=== PATIENT | female | born 1990 | race Caucasian/White ===

== ENCOUNTER 2018-07-12 21:17 | Emergency (ER) | payer OTHER, SELFPAY ==
[2018-07-12 21:18] VITALS: BP 166/106; PULSE 94; RESP 20; TEMP 36.5; O2SAT 99; BMI 42.9
--- NOTE | 2018-07-12 21:49 | EKG12_ITS ---
Test Reason : DIZZINESS Blood Pressure : / mmHG Vent. Rate : 097 BPM Atrial Rate : 097 BPM P-R Int : 156 ms QRS Dur : 074 ms QT Int : 366 ms P-R-T Axes : 036 025 044 degrees QTc Int : 464 ms Normal sinus rhythm Normal ECG Confirmed by CRISTINA DIMAS, BERNA ([id number]), newspaper or periodical editor EARLENE PFEIFFER ([id number]) on 07/14/2018 10:08:21 AM Referred By: VICENTE Confirmed By:BERNA EVANS MD
--- NOTE | 2018-07-12 21:53 | ED.RN ---
NO OLD EKGS IN MUSE
[2018-07-12 22:23] LABS: Mucous, Urine 0 SEEN /hpf (<or=2+); Red Blood Cells-Urine 0 SEEN /hpf (0-5)
[2018-07-12 22:37] VITALS: BP 125/83; PULSE 93; RESP 22; O2SAT 97
[2018-07-12 22:47] LABS: Color, Urine Yellow (Yellow); Glucose, Dipstick Normal (Normal); Ketone-Dipstick Negative (Negative); Leukocyte Esterase-Dipstick 100 /ul (Negative); Nitrite-Dipstick Negative (Negative); Occult Blood-Urine Negative /ul (Negative); Protein-Dipstick 15 mg/dl (Negative); Specific Gravity, Urine 1.025 (1.002-1.030); Urine Bilirubin Dipstick Negative (Negative); Urine Clarity Sl. Cloudy (Clear); Urine Urobilinogen 1 mg/dl (Normal)
[2018-07-12 22:48] LABS: Hematocrit 38.7 % (37-47); Hemoglobin 12.4 g/dl (12.0-15.0); Mean Corpuscular Hgb 25.9 pg (27.0-32.0); Mean Corpuscular Volume 80.8 fL (81-99); Mean Platelet Vol. 9.5 fl (6.2-12.0); Platelet Count 375 K/mm3 (150-450); RBC Distribution Width CV 14.7 % (11.6-14.6); Red Blood Count 4.79 M/mm3 (4.2-5.4); White Blood Count 10.1 K/mm3 (4.4-11.0)
[2018-07-12 22:50] LABS: Scan Indicated on CBC? Y/N NO
[2018-07-12 22:55] LABS: Bacteria RARE /hpf (None Seen); Squamous Epithelial Cells - UA 5-10 SEEN /hpf (5-10); White Blood Cells 5-10 SEEN /hpf (0-5)
[2018-07-12 23:01] LABS: Anion Gap 5 (5-15); BUN 7 mg/dL (7-18); BUN/Creat Ratio 11.4 RATIO (10-20); Calcium,Total 8.5 mg/dL (8.5-10.1); Chloride 107 mmol/L (98-107); Creatinine, Serum 0.62 mg/dL (0.55-1.02); EST Glomerular Filtration Rate 123 mL/min (>60); Est Glom Filt Rate - Afr Amer 149 mL/min (>60); Glucose 117 mg/dL (74-106); Potassium 3.6 mmol/L (3.5-5.1); Sodium Level 137 mmol/L (136-145)
--- NOTE | 2018-07-12 23:18 | ED.VIS.GEN ---
History of Present Illness Chief Complaint: Dizziness Detail of Chief Complaint: Left-sided chest pain and noncompliance with blood pressure medication Informant: Patient, Family Onset: Month(s) Context: Sudden Onset Timing: Intermittent Quality: Dizziness equals vertigo Location: Change in position Current Severity: Gone Maximum Severity: Severe Worsened by: Change in head position Relieved by: Lying down remaining still and closing her eyes Associated Symptoms: Nausea and diaphoresis with vertigo Narrative: Patient is a 27-year-old woman who has not taken her blood pressure medications for months. She resumed taking her medication several days ago. She presents with dizziness which she defines as a spinning sensation. She feels that she had multiple mixed drinks. She denied double vision. She denies trouble with speech or swallowing. She denies paresthesia, anesthesia or motor weakness. She did would have numbness of her left upper extremity and her toes right and left foot. There was no other associated symptoms. She denies headache. She denies change in vision or blurred vision. She denies radiation of the chest pain nor is or any associated symptoms. Prior similar symptoms: No Recent Illness/Hospitalization: No Past Medical History - Allergies and Home Meds Allergies/Adverse Reactions: Allergies No Known Allergies Allergy (Verified 07/12/18 21:19) Primary Care Physician: Micaela Morel MD [Primary Care Provider] - Past Medical History: - - Hypertension Surgical History: noncontributory Lives: Spouse/ Significant Other Smoking Status: Current every day smoker Alcohol: Occasional Drugs: None Review of Systems General: Denies: Chills, Fever, Malaise, Sweats, Weight loss Eyes: Denies: Visual changes - left, Visual changes - bilaterally, Blurred Vision - bilaterally, Diplopia ENT: Denies: Bilateral ear pain, Rhinorrhea, Sore throat Cardiovascular: Denies: Chest pain, Palpitations, Heart racing Respiratory: Denies: Dyspnea, Cough, Dyspnea on exertion Gastrointestinal: Reports: Nausea, Vomiting. Denies: Abdominal pain, Diarrhea, Melena, Hematochezia Genitourinary: Denies: Dysuria, Hematuria, Frequency Musculoskeletal: Denies: Myalgias, Arthralgias, Neck pain, Back pain, Extremity Pain Skin: Denies: Rash, Wounds Neurological: Denies: Headache, Weakness, Parasthesia, Numbness Endocrine: Denies: Polyuria, Polydipsia Hematologic: Denies: Easy bruising, Easy bleeding Allergy: Denies: Uticaria Physical Exam Vital Signs/Narrative: Vital Signs Temp Pulse Resp BP Pulse Ox 07/12/18 22:37 93 22 H 125/83 H 97 07/12/18 21:18 97.7 F L 94 20 H 166/106 H 99 Inital Vital Signs reviewed: Yes General: Well nourished, Well developed, Obese, No Acute Distress Head: Normocephalic, Atraumatic Eyes: Perrl, EOMI. Negative for: Pale conjunctiva, Scleral icterus ENT: Moist mucous membranes, No rhinorrhea, TM's clear, Nasal congestion Neck: Supple, Nontender, No lymphadenopathy, No JVD, - - Trachea is midline there is no stridor. Cardiovascular: Regular rate, Regular rhythm, No murmurs, Normal S1, Normal S2 Respiratory: No distress, CTA bilaterally, Chest nontender Abdomen: Soft, Nontender, Nondistended, Normal bowel sounds, No masses Rectal: Deferred Back: Nontender Extremities: Nontender, No edema. Negative for: Calf Tenderness Skin: Normal color, No rash. Negative for: Cyanosis, Jaundice Neurological: Alert, Oriented x3, Cranial nerves II-XII grossly intact, Normal Strength, Normal Sensation, Normal DTR, Normal Gait, - - Livingston-Hallpike maneuver was negative. The eye askew test was negative. TheHINT exam was negative. Psychological: Normal affect, Normal Mood Diagnostic/Tx/Re-eval Troponin is normal. CBC and BMP are unremarkable. - Rhythm Strip Rhythm Strip: Sinus Rhythm Rate: 92 Ectopy: None - EKG Initial EKG Interpretation: Sinus Rhythm - Ventricular rate is 97. MD interval, QRS duration and QT interval normal. [place] is normal. EKG is normal. - Medical Decision Making Patient describing paroxysmal benign positional vertigo. Neuro exam is normal. Imaging is not indicated. Because of her complaint of left chest pain and noncompliance with blood pressure medication will obtain basic metabolic panel to assess renal function and UA to assess for proteinuria and hematuria. EKG was obtained to evaluate for ischemia as well as troponin. Patient was informed of her workup is unremarkable. There is no evidence of endorgan injury. EKG and troponin are normal. She was informed the cause of her left-sided chest pain is uncertain. She was encouraged to follow-up with her PCP and to take her blood pressure medication as prescribed. ED Disposition - Plan for ED Patient: Disposition: Home or Assisted Living Diagnosis: Left-sided chest pain, Hypertension, Benign paroxysmal positional vertigo Referrals: Micaela Morel MD [Primary Care Provider] - 3-5 Days
--- NOTE | 2018-07-12 23:28 | ED.DCSUM_ITS ---
- ER Visit Summary Date of Service: 07/12/18 Chief Complaint: [] History of Present Illness: The patient is a 27 F [] Physical Examination: [] Test Results: [] Emergency Department Course and Treatment: [] Treatment Plan: [] Disposition: [] Impression: [] This note was generated with [employer] dictation software. It may contain incorrect words, spelling, and punctuation that were not noted in review of the chart prior to signing ED Disposition - Plan for ED Patient: Disposition: Home or Assisted Living Diagnosis: Left-sided chest pain, Hypertension, Benign paroxysmal positional vertigo Instructions: ED BPV Vertigo, ED Chest Pain NonCardiac Referrals: Micaela Morel MD [Primary Care Provider] - 3-5 Days
[2018-07-12 23:35] VITALS: BP 153/107; PULSE 87; RESP 20; O2SAT 95
== END 2018-07-12 23:36 | disposition home or self-care (01) ==
PROVIDERS: Emergency Provider Emergency Medicine; Family Provider Family Medicine; PCP Family Medicine
DX: H81.10 Benign paroxysmal vertigo, unspecified ear (principal); R07.9 Chest pain, unspecified; I10 Essential (primary) hypertension; F17.200 Nicotine dependence, unspecified, uncomplicated; E66.9 Obesity, unspecified; Z91.14 Patient's other noncompliance with medication regimen; Z79.899 Other long term (current) drug therapy
CPT/HCPCS: 80048; 81001; 84484; 85027; 93005; 99284

== ENCOUNTER 2019-09-15 00:59 | Emergency (ER) | payer OTHER, SELFPAY ==
[2019-09-15 01:01] VITALS: BP 163/113; PULSE 123; RESP 16; TEMP 36.8; O2SAT 98; BMI 48.8
[2019-09-15 01:06] VITALS: BP 163/113; PULSE 123; RESP 16; TEMP 36.8; O2SAT 98
--- NOTE | 2019-09-15 01:16 | CT_ITS ---
STUDY: CT ABDOMEN AND PELVIS WITHOUT CONTRAST REASON FOR EXAM: Female, 28 years old. SEVERE LOWER ABD PAIN RIGHT SIDE SINCE 2129 RADIATES TO BACK AND UMBILICAL REGION WITH EMESIS RADIATION DOSAGE (If Supplied By Facility): CTDIvol = ( 23.84 ) mGy, DLP = ( 1197.12 ) mGycm TECHNIQUE: Transaxial 2.5 mm images were obtained from the dome of the diaphragm to the symphysis pubis without oral contrast, and without intravenous contrast. Sagittal and coronal images were reconstructed. This examination is limited for the evaluation of gastrointestinal, solid organs and vascular structures due to the lack of intravenous and oral contrast. There is obesity, the entirety of soft tissue is not imaged. Individualized dose optimization techniques were used for this CT. COMPARISON: None. FINDINGS: The visualized lung bases are unremarkable. The visualized portions of the heart are within normal limits. There is hepatomegaly with diffuse hepatic enlargement. Liver measures craniocaudal by 2.5 cm. Normal gallbladder and extrahepatic biliary system. Normal spleen. Normal pancreas. Normal bilateral adrenal glands. Normal right kidney. Normal left kidney. There is no obstructive uropathy, obstructive renal or ureteral calculi. Normal visualized stomach. Normal small intestine. Normal colon. The appendix is visualized and appears normal. Image 65-81 series 601 Normal abdominal aorta. Normal inferior vena cava. Normal retroperitoneum. Decompressed urinary bladder. Normal visualized uterus. Right ovary measures approximately 3.5 x 2.5 x 3.6 cm. The ovary measures approximately 4 x 3.5 x 3.5 cm. Obesity. Normal osseous structures. CT/Abdomen/Pelvis without Cont IMPRESSION: There is no appendicitis, colitis, ascites, hydronephrosis, abscess, collection, perforation or obstruction. Hepatomegaly. Normal appearance of adnexa/ovary and uterus on noncontrast imaging. Electronically Signed: Katie Barksdale MD at 2:40 EDT , Service support ,
--- NOTE | 2019-09-15 01:17 | ED.VIS.GEN ---
History of Present Illness Chief Complaint: Abd Pain Informant: Patient Narrative: Stated approximately 4 hours ago she had acute onset of right lower quadrant pain. She was resting comfortably and then it hit her all of a sudden. It waxes and wanes. Is a dull pain but then she gets intermittent sharp pains. She is never had this before. Current severity is mild. No blood in her urine. Denies . Last menstrual period was a couple weeks ago. Denies any vaginal symptoms. No home treatment. Worsened by touching it. Relieved by time. She denies any medical problems other than hypertension. No previous abdominal surgeries per patient. Stated it radiates into her back bilateral worse on the right Past Medical History - Allergies and Home Meds Allergies/Adverse Reactions: Allergies No Known Allergies Allergy (Verified 07/12/18 21:19) Primary Care Physician: Arin Branch,Out of [NON-STAFF] - Prior records reviewed: Yes Past Medical History: - - Hypertension Surgical History: noncontributory Smoking Status: Never smoker Alcohol: None Drugs: None Review of Systems General: Denies: Chills, Fever, Sweats Eyes: Denies: Visual changes - bilaterally, Diplopia ENT: Denies: Rhinorrhea, Sore throat Cardiovascular: Denies: Chest pain, Palpitations Respiratory: Denies: Dyspnea, Cough, Dyspnea on exertion Gastrointestinal: Reports: Abdominal pain. Denies: Nausea, Vomiting, Diarrhea, Melena, Hematochezia Genitourinary: Denies: Dysuria, Hematuria, Frequency Musculoskeletal: Reports: Back pain. Denies: Extremity Pain Skin: Denies: Rash, Wounds Neurological: Denies: Headache, Weakness, Numbness Physical Exam Vital Signs/Narrative: Vital Signs Temp Pulse Resp BP Pulse Ox 09/15/19 01:06 98.3 F 123 H 16 163/113 H 98 09/15/19 01:01 98.3 F 123 H 16 163/113 H 98 General: Well nourished, Well developed, No Acute Distress Head: Normocephalic, Atraumatic Eyes: Perrl, EOMI ENT: Moist mucous membranes, No rhinorrhea Neck: Supple, Nontender Cardiovascular: Regular rate, Regular rhythm, No murmurs Respiratory: No distress, CTA bilaterally, Chest nontender Abdomen: Soft, Nondistended, Normal bowel sounds, No masses, Tender - Tender right flank and right lower quadrant. Negative for: Nontender, Guarding, Rebound tenderness Back: Nontender, Normal Inspection Extremities: Nontender, No edema Skin: Normal color, No rash Neurological: Alert, Oriented x3, Cranial nerves II-XII grossly intact, Normal Strength, Normal Sensation Psychological: Normal affect, Normal Mood Diagnostic/Tx/Re-eval - Medical Decision Making Patient given IV fluids morphine and Toradol and Zofran. Lab work and CT abdomen pelvis obtained. Lab work shows a white count of 19,000. Electrolytes liver function test and lipase show no major abnormalities. Urinalysis does show white blood cells epithelials and 2+ bacteria. Urine culture sent. CT abdomen pelvis shows nothing acute. No evidence of appendicitis. No kidney stone. Ultrasound was obtained shows right-sided ovarian cyst 2 cm. This could be the cause of the patient's pain. I am concerned about her leukocytosis. This could be secondary to the pain she experienced as well as her urine. She was given Bactrim antibiotic. She will be given a short course of pain medicine for home. On reevaluation her abdomen is much better. She has very minimal tenderness just in the right adnexa. Is adamant she is never had a sexually transmitted disease. She is in a monogamous relationship with her only. She declined pelvic exam as well as gonorrhea chlamydia testing or treatment. She will follow-up as an outpatient with her [employer] return if she worsens ED Disposition - Plan for ED Patient: Disposition: Home or Assisted Living Diagnosis: Urinary tract infection, Right lower quadrant abdominal pain, Leukocytosis, Ovarian cyst Instructions: ED CYSTITIS Female Adult, What Are Ovarian Cysts?, ED Abdominal Pain Unkn Cause Fem Prescriptions: Smz/Tmp Ds [Bactrim Ds] 1 tab PO BID #14 tab Prescription Printed Oxycodone HCl/Acetaminophen [Percocet 5/325] 1 - 2 tab PO Q6H PRN PRN 3 Days #12 tab PRN Reason: Pain Prescription Printed Ondansetron [Zofran Odt] 8 mg PO Q8H PRN PRN #20 tab PRN Reason: Nausea Prescription Printed Referrals: Doctor,Your [STAFF PHYSICIAN] - Additional Instructions: Follow with your [employer] as well for right-sided ovarian cyst and pain
[2019-09-15 01:49] LABS: Absolute Lymphocyte Count 2.83 X10^3/uL (0.83-4.51); Absolute Neutrophil Count 15.1 X10^3/uL (2.0-7.7); Basophil# 0.05 X10^3/uL; Basophil% 0.3 % (0-1); Eosinophils% 0.5 % (0-5); Hematocrit 38.4 % (37-47); Hemoglobin 12.7 g/dL (12.0-15.0); Lymphocyte # 2.83 X10^3/ul (4.0); Lymphocyte % 14.8 % (19-41); Mean Corp Hgb Conc 33.1 g/dL (32-36); Mean Corpuscular Hgb 25.9 pg (27.0-32.0); Mean Corpuscular Volume 78.4 fL (81-99); Mean Platelet Vol. 9.6 fl (6.2-12.0); Monocyte% 4.7 % (0-10); NRBC Flagged by Analyzer 0 % (0-5); Neutrophil # 15.11 X10^3/uL (2.7-7.7); Neutrophil % 79.2 % (47-70); Platelet Count 410 K/mm3 (150-450); RBC Distribution Width CV 14.8 % (11.6-14.6); RBC Distribution Width SD 40.9 fl (35.1-43.9); White Blood Count 19.1 K/mm3 (4.4-11.0)
[2019-09-15 01:50] LABS: Color, Urine Yellow (Yellow); Glucose, Dipstick Normal (Normal); Ketone-Dipstick Negative (Negative); Leukocyte Esterase-Dipstick 100 /ul (Negative); Mucous, Urine 0 SEEN /hpf (<or=2+); Nitrite-Dipstick Negative (Negative); Occult Blood-Urine Negative /ul (Negative); Protein-Dipstick Negative (Negative); Red Blood Cells-Urine 0 SEEN /hpf (0-5); Specific Gravity, Urine 1.015 (1.002-1.030); Urine Bilirubin Dipstick Negative (Negative); Urine Clarity Sl. Cloudy (Clear); Urine Urobilinogen Normal (Normal)
[2019-09-15] MEDS: 0.9% Normal Saline 1,000 ML 250 ML IV (01:54)
[2019-09-15] MEDS: Ketorolac 30 MG/ML Syringe IV (01:55)
[2019-09-15] MEDS: Ondansetron 4 MG/2 ML Vial IV (01:55)
[2019-09-15] MEDS: Morphine 4 MG/ML Syringe IV ×2 (01:56→05:22)
[2019-09-15 02:00] LABS: Bacteria 2+ /hpf (None Seen); Squamous Epithelial Cells - UA 5-10 SEEN /hpf (5-10); White Blood Cells 5-10 SEEN /hpf (0-5)
[2019-09-15 02:04] LABS: ALB/GLOB Ratio 0.9 RATIO (0.9-2.4); AST(SGOT) 15 U/L (15-37); Alanine Aminotransfer ALT/SGPT 30 U/L (13-56); Albumin, Serum 3.8 g/dL (3.2-5.0); Alkaline Phosphatase 121 U/L (45-117); Anion Gap 7 (5-15); BUN 9 mg/dL (7-18); BUN/Creat Ratio 13.3 RATIO (10-20); Chloride 106 mmol/L (98-107); Creatinine, Serum 0.68 mg/dL (0.55-1.02); EST Glomerular Filtration Rate 110 mL/min (>60); Est Glom Filt Rate - Afr Amer 133 mL/min (>60); Estimated Creatinine Clearance 97.42 ml/min; Globulin 4.3 g/dL (2.2-4.2); Glucose 100 mg/dL (74-106); Lipase 58 U/L (73-393); Potassium 3.6 mmol/L (3.5-5.1); Protein, Total 8.1 g/dL (6.4-8.2); Sodium Level 138 mmol/L (136-145)
[2019-09-15 02:07] LABS: Internal QC Validated? YES +Cl - CLEAR BKGD; Pregnancy, Serum, hCG Quali. NEGATIVE Negative
--- NOTE | 2019-09-15 03:29 | US_ITS ---
STUDY: ULTRASOUND TRANSVAGINAL CLINICAL: Female, 28 years old. PAIN right pelvis. CHECKING FOR TORSION . LMP 09/01/2019. 0. TECHNIQUE: Transvaginal. Limited detail due to body habitus and bowel gas. COMPARISON: CT abdomen pelvis 09/15/2019 FINDINGS: Normal uterine size measuring 8 cm in maximal craniocaudal dimension. There are no myometrial masses. Increased echogenicity of the endometrium with a thickness measuring 14 mm. The endometrium in the fundus is slightly heterogeneous. Possible trace fluid in the lower uterine segment. There is limited visualization. Normal uterine cervix. Normal right ovary, measuring 3.7 x 3.6 x 2.5 cm. There is a 2 x 2 by 2 cm cyst. Normal left ovary, measuring 4.7 x 2.2 x 2.5 cm. There is a dominant follicle off 1.3 x 1.2 x 1.4 cm. There is no free fluid in the pelvis. Polycystic ovary disease: No. US/Transvaginal Non- IMPRESSION: No adnexal masses, large pelvic fluid or ovarian torsion. Bilateral follicles/cysts as above. Mild endometrial fluid suspected, endometrium in the fundus is slightly heterogeneous, there is however limited visualization. Follow-up is recommended. Electronically Signed: Katie Barksdale MD at 4:55 EDT , Service support ,
[2019-09-15 03:47] VITALS: BP 127/82; PULSE 102; RESP 18; TEMP 36.9; O2SAT 96
[2019-09-15] MEDS: 0.9% Normal Saline 1,000 ML 1000 ML IV ×2 (03:57→05:22)
[2019-09-15] MEDS: Smz/Tmp Ds Tablet 1 TABLET PO (05:22)
[2019-09-15 05:56] VITALS: BP 122/82; PULSE 92; RESP 16; O2SAT 99
== END 2019-09-15 05:59 | disposition home or self-care (01) ==
PROVIDERS: Emergency Provider Emergency Medicine; PCP Family Medicine
DX: N39.0 Urinary tract infection, site not specified (principal); R10.31 Right lower quadrant pain; D72.829 Elevated white blood cell count, unspecified; N83.201 Unspecified ovarian cyst, right side
CPT/HCPCS: 74176; 76830; 80053; 81001; 83690; 84703; 85025; 87086; 87088; 93976; 96361; 96365; 96367; 96374; 96375; 99284; J7030; A4216; J2405

== ENCOUNTER → 2020-01-13 13:00 | Outpatient (CLI) | payer OTHER, SELFPAY ==
[2020-01-21 09:12] LABS: Progesterone Level 6.56 ng/mL (See Comment)
== END ==
LOC: LAB 02-23 08:51
PROVIDERS: PCP Family Medicine; Referring Provider Obstetrics & Gynecology; Visit Provider Obstetrics & Gynecology
DX: N92.6 Irregular menstruation, unspecified (principal)
CPT/HCPCS: 36415; 84144

== ENCOUNTER → 2024-03-04 | Outpatient (CLI) | payer OTHER, SELFPAY ==
[2024-03-04 12:11] LABS: Absolute Lymphocyte Count 2.26 X10^3/uL (0.83-4.51); Absolute Neutrophil Count 6.7 X10^3/uL (2.0-7.7); Basophil# 0.04 X10^3/uL; Basophil% 0.4 % (0-1); Eosinophil# 0.15 X10^3/uL; Eosinophils% 1.5 % (0-5); Hematocrit 38.3 % (37-47); Hemoglobin 12.1 g/dL (12.0-15.0); Lymphocyte # 2.26 X10^3/ul (0.83-4.51); Lymphocyte % 22.8 % (19-41); Mean Corp Hgb Conc 31.6 g/dL (32-36); Mean Corpuscular Hgb 25.8 pg (27.0-32.0); Mean Corpuscular Volume 81.7 fL (81-99); Mean Platelet Vol. 9.9 fl (6.2-12.0); Monocyte# 0.63 X10^3/uL; Monocyte% 6.4 % (0-10); NRBC Flagged by Analyzer 0 % (0-5); Neutrophil # 6.65 X10^3/uL (2.7-7.7); Platelet Count 389 K/mm3 (150-450); RBC Distribution Width SD 44.7 fl (35.1-43.9); Red Blood Count 4.69 M/mm3 (4.2-5.4); White Blood Count 9.9 K/mm3 (4.4-11.0)
[2024-03-04 12:33] LABS: ALB/GLOB Ratio 0.8 RATIO (0.9-2.4); AST(SGOT) 10 U/L (15-37); Alanine Aminotransfer ALT/SGPT 26 U/L (13-56); Albumin, Serum 3.3 g/dL (3.2-5.0); Alkaline Phosphatase 119 U/L (45-117); Anion Gap 5 (5-15); BUN 13 mg/dL (7-18); BUN/Creat Ratio 19.5 RATIO (10-20); Calcium,Total 8.9 mg/dL (8.5-10.1); Chloride 105 mmol/L (98-107); Cholesterol 183 mg/dL (200); Creatinine, Serum 0.67 mg/dL (0.55-1.02); EST Glomerular Filtration Rate 108 mL/min (>60); Est Glom Filt Rate - Afr Amer 131 mL/min (>60); Globulin 4.2 g/dL (2.2-4.2); Glucose 101 mg/dL (74-106); High Density Lipoprotein 27 mg/dL; Potassium 3.8 mmol/L (3.5-5.1); Protein, Total 7.5 g/dL (6.4-8.2); Sodium Level 134 mmol/L (136-145); Triglycerides 246 mg/dL; Very Low Density Lipoprotein 49 mg/dL (5-40)
== END | disposition home or self-care (01) ==
LOC: BFHLAB 08:39
PROVIDERS: PCP Family Medicine; Visit Provider Nurse Practitioner Family
DX: Z00.01 Encounter for general adult medical examination with abnormal findings (principal)
CPT/HCPCS: 36415; 80053; 80061; 85025

== ENCOUNTER → 2024-04-06 | Outpatient (CLI) | payer OTHER, SELFPAY ==
--- NOTE | 2024-04-06 12:45 | RAD_ITS ---
STUDY: X-RAY CHEST REASON FOR EXAM: Female, 33 years old. Fever and cough TECHNIQUE: PA and lateral views of the chest. COMPARISON: None. FINDINGS: The lungs are clear and expanded. There is no demonstrated pleural abnormality. Normal size heart. Normal mediastinum and jaime. Normal visualized pulmonary arteries. Normal visualized aortic arch and descending thoracic aorta. Normal visualized thoracic spine. Normal visualized ribs, clavicles, and shoulders. There is no demonstrated abnormality of the visualized soft tissue structures of the upper abdomen. RAD/Chest PA and Lateral IMPRESSION: Normal x-ray examination of the chest. Electronically Signed: Sammy Gasca MD at 12:59 EST ,
== END | disposition home or self-care (01) ==
LOC: MTRAD 12:43
PROVIDERS: PCP Nurse Practitioner Family; Referring Provider Nurse Practitioner Family; Visit Provider Nurse Practitioner Family
DX: R05.9 Cough, unspecified (principal)
CPT/HCPCS: 71046

== ENCOUNTER → 2025-02-03 | Outpatient (CLI) | payer OTHER, BC, SELFPAY ==
--- OUTSIDE RECORDS SUMMARY | 2025-02-03 09:52 | XMS RPT_ITS | CCD ---
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 Name Role Phone PROVIDER, UNKNOWN Unavailable Unavailable Zamorano, Cece Unavailable Unavailable Zamorano, Cece Unavailable Unavailable Jarvis Hawkins Admitting Unavailable Jarvis Hawkins Attending Unavailable Alvin Rose Primary Care Unavailable NO, PHYSICIAN Primary Care Unavailable NATHALIE KITCHEN Attending Unavaila ble No, Physician Primary Care Provider Unavailabl e Zamorano DO, Cece Unavailable Unavailable Zamorano, Cece N Unavailable Unavailable Emilia LD, MS, RDN, Kavita Unavailable Un available BISHNU RAO DO Primary Care Physician BISHNU RAO DO Attending Unavailable BISHNU RAO DO Primary Care Unavailable Kanika Helton Attending Unavailable Bishnu Rao Primary Care Unavailable Kanika Helton Referring Unavailable Kanika Helton Primary Care Unavailable Kanika Helton Attending Unavailable Allergies Allergy Classification Reported Allergen(s) Allergy Type Date of Onset Reaction(s) Facility (1 source) No Known Medication Allergies; Translations: [No Known Medication Allergies] Propensity to adverse reactions to drug (disorder) [facility] Repository Medications Current Medications Medication Drug Class(es) Dates Sig (Normalized) Sig (Original) cephalexin 500 mg oral capsule (1 source) Cephalosporin Antibacterial Start: 01-07-2020 take 1 capsule by mouth three times daily cephALEXin (KEFLEX) 500 MG capsule 1 capsule po tid x 7 days . 21 capsule 0 01/07/2020 Active citalopram 20 mg oral tablet (1 source) Serotonin Reuptake Inhibitor Start: 06-12-2022 citalopram 20 mg oral tablet Dose : 20 mg = 1 tab(s), Oral, qDay, Increased dose, # 90 tab(s), 0 Refill(s), Pharmacy: [facility]/pharmacy #[id number], Anxiety Depression, 161.5, cm, 06/12/22 14:44:00 EST, Height Start Date: 06/12/22 Status: Ordered ibuprofen 200 mg oral tablet (1 source) Nonsteroidal Anti-inflammatory Drug Start: 03-30-2020 ibuprofen 200 mg oral tablet Dose : 400 mg = 2 tab(s), Oral, q6hr, PRN pain or fever, 0 Refill(s) Start Date: 03/30/20 Status: Ordered labetalol hydrochloride 100 mg oral tablet (2 sources) beta-Adrenergic Petrona Start: 06-12-2022 labetalol 100 mg oral tablet Dose : 200 mg = 2 tab(s), Oral, BID, Increased dose, # 360 tab(s), 0 Refill(s), [id number], Hypertension, 161.5, cm, 06/12/22 14:44:00 EST, Height, kg, 06/12/22 14:44:00 EST, Dosing Weight Start Date: 06/12/22 Status: Ordered Start: 12-16-2016 take 1 tablet by pat twice daily Labetalol HCl - 100 MG Oral Tablet TAKE ONE TABLET BY MOUTH TWO TIMES A DAY Quantity: 60 Refills: 11 Cece Zamorano DO Start : 16-Dec-2016 Active letrozole 2.5 mg oral tablet (1 source) Aromatase Inhibitor Start: 01-02-2020 letrozole (FEMARA) 2.5 mg tablet ofloxacin 3 mg/ml otic solution (1 source) Quinolone Antimicrobial Start: 01-07-2020 ofloxa enedina (FLOXIN) 0.3 % otic solution 10 drops in affected ear(s) once daily x 7 days . 5 mL 0 01/07/2020 Active Completed/Discontinued Medications Medication Drug Class(es) Dates Sig (Normalized) Sig (Original) Blood Pressure Cuff (1 source) Start: 12-16-2016 Blood Pressure Cuff Elevated blood pressure without hypertension Quantity: 1 Refills: 0 Cece Zamorano DO Start : 16-Dec-2016 Active Problems Active Problems Problem Classification Problem Date Documented Da te Episodic/Chronic Allergic reactions (1 source) Eczema 04-08-2022 Episodic Anxiety disorders (1 source) Anxiety 04-08-2022 Chronic Essential hypertension (4 sources) Hypertensive disorder; Translations: [Unspecified essential hypertension] Onset: 06-12-2022 01-17-2020 Chronic Headache, including migraine (2 sources) Episodic paroxysmal hemicrania, not intractable; Translations: [Episodic paroxysmal hemicrania, not intractable] Onset: 12-09-2016 Chronic Mood disorders (2 sources) Depressive disorder; Translations: [Depressive disorder, not elsewhere classified] 01-17-2020 Chronic Other ear and sense organ disorders (1 source) Bilateral earache; Translations: [Ear pain, bilateral] Episodic Other ear and sense organ disorders (1 source) Acute otitis externa of bilateral ears; Translations: [Acute otitis externa of both ears, unspecified type] Other endocrine disorders (1 source) Polycystic ovary syndrome 01-17-2020 Chronic Other nutritional; endocrine; and metabolic disorders (1 source) Obesity; Translations: [Obesity, unspecified] Chronic Other screening for suspected conditions (not mental disorders or infectious disease) (1 source) Viral screening status 06-12-2022 Episodic Unclassified (2 sources) Patient encounter status 06-12-2022 Unclassified (1 source) Cough, unspecified; Translations: [Cough, unspecified] Onset: 05-05-2024 Past or Other Problems Problem Classification Problem Date Documented Date Episodic/Chronic Abdominal pain (1 source) Acute abdominal pain; Translations: [Abdominal pain, right upper quadrant] Episodic Acute bronchitis (1 source) Acute bronchitis; Translations: [Acute bronchitis] Episodic Headache, including migraine (2 sources) Headache; Translations: [Headache] Onset: 12-09-2016 Episodic Nausea and vomiting (2 sources) Nausea; Translations: [Nausea alone] Episodic Noninfectious gastroenteritis (1 source) Gastroenteritis; Translations: [Other and unspecified noninfectious gastroenteritis and colitis] Episodic Other injuries and conditions due to external causes (1 source) Injury of lower leg; Translations: [Sprains and strains of unspecified site of knee and leg] Episodic Other liver diseases (1 source) Aspartate aminotransferase serum level raised; Translations: [Nonspecific elevation of levels of transaminase or lactic acid dehydrogenase [LDH]] Episodic Other liver diseases (1 source) ALT (SGPT) level raised; Translations: [Nonspecific elevation of levels of transaminase or lactic acid dehydrogenase [LDH]] Episodic Urinary tract infections (1 source) Acute urinary tract infection; Translations: [Urinary tract infection, site not specified] Episodic NEGATED: Highlighted row has not occurred!Residual codes; unclassified (1 source) Disease Episodic Results Test Name Value Interpretation Reference Range Facility Chest PA and Lateralon 04-06 Chest PA and Lateral [facility] Imaging Services [address] [place] [place], [place] [address] Chest PA and Lateral MR#: [id number] Acct: [id number] Name: BRII DASILVA HANS Rep #: [id number] : 1990 F 33 From: Valentin Gasca MD PCP: ADRIENNE Alexandre Status: REG CLI Study: Chest PA and Lateral Date of Exam: 04/06/24 Exam# [id number] Ordering Dr: Kanika Helton [id number] STUDY: X-RAY CHEST REASON FOR EXAM: Female, 33 years old. Fever and cough TECHNIQUE: PA and lateral views of the chest. COMPARISON: None. FINDINGS: The lungs are clear and expanded. There is no demonstrated pleural abnormality. Normal size heart. Normal mediastinum and jaime. Normal visualized pulmonary arteries. Normal visualized aortic arch and descending thoracic aorta. Normal visualized thoracic spine. Normal visualized ribs, clavicles, and shoulders. There is no demonstrated abnormality of the visualized soft tissue structures of the upper abdomen. RAD/Chest PA and Lateral IMPRESSION: Normal x-ray examination of the chest. Electronically Signed: Sammy Gasca MD at 12:59 EST , CC: ADRIENNE Helton Handyman: Signed Normal [facility] CBC W/Diff, Automatedon 10-1 Absolute Lymph 2.26 X10 3/uL Normal 0.83-4.51 [facility] Comment on above: Performed By: #### L 500.4050, L100.0100, L500.4100 #### [facility] [address] [place], [address] Absolute Neut 6.7 X10 3/uL Normal 2.0-7.7 [facility] Comment on above: Performed By: #### L 500.4050, L100.0100, L500.4100 #### [facility] [address] [place], [address] Basophils/100 WBC (Bld) 0.4 % Normal 0-1 [facility] Comment on above: Performed By: #### L 500.4050, L100.0100, L500.4100 #### [facility] [address] [place], [address] Eosinophils/100 WBC (Bld) 1.5 % Normal 0-5 [facility] Comment on above: Performed By: #### L 500.4050, L100.0100, L500.4100 #### [facility] [address] [place], [address] Erythrocyte distribution width (RBC) [Ratio] 15.0 % High 11.6-14.6 [facility] Comment on above: Performed By: #### L 500.4050, L100.0100, L500.4100 #### [facility] [address] [place], [address] Hematocrit (Bld) [Volume fraction] 38.3 % Normal 37-47 [facility] Comment on above: Performed By: #### L 500.4050, L100.0100, L500.4100 #### [facility] [address] [place], [address] Hemoglobin (Bld) [Mass/Vol] 12.1 g/dL Normal 12.0-15.0 [facility] Comment on above: Performed By: #### L 500.4050, L100.0100, L500.4100 #### [facility] [address] [place], [address] IG% 1.900 High 0.0-0.9 [facility] Comment on above: Result Comment: IG% - Immature Granulocytes (promyelocytes, myelocytes and metamyelocytes) > 1% indicates that a LEFT SHIFT is Present. Performed By: #### L 500.4050, L100.0100, L500.4100 #### [facility] [address] [place], [address] Lymphocytes/100 WBC (Bld) 22.8 % Normal 19-41 [facility] Comment on above: Performed By: #### L 500.4050, L100.0100, L500.4100 #### [facility] [address] [place], [address] MCH (RBC) [Entitic mass] 25.8 pg Low 27.0-32.0 [facility] Comment on above: Performed By: #### L 500.4050, L100.0100, L500.4100 #### [facility] [address] [place], [address] MCHC (RBC) [Mass/Vol] 31.6 g/dL Low 32-36 [facility] Comment on above: Performed By: #### L 500.4050, L100.0100, L500.4100 #### [facility] [address] [place], [address] MCV (RBC) [Entitic vol] 81.7 fL Normal 81-99 [facility] Comment on above: Performed By: #### L 500.4050, L100.0100, L500.4100 #### [facility] [address] [place], [address] Monocytes/100 WBC (Bld) 6.4 % Normal 0-10 [facility] Comment on above: Performed By: #### L 500.4050, L100.0100, L500.4100 #### [facility] [address] [place], [address] Neutrophils/100 WBC (Bld) 67.0 % Normal 47-70 [facility] Comment on above: Performed By: #### L 500.4050, L100.0100, L500.4100 #### [facility] [address] [place], [address] Nucleated RBC (Bld) [#/Vol] 0 10*3/uL Normal 0-5 [facility] Comment on above: Performed By: #### L 500.4050, L100.0100, L500.4100 #### [facility] [address] [place], [address] Platelet mean volume (Bld) [Entitic vol] 9.9 fL Normal 6.2-12.0 [facility] Comment on above: Performed By: #### L 500.4050, L100.0100, L500.4100 #### [facility] [address] [place], [address] Platelets (Bld) [#/Vol] 389 10*3/uL Normal 150-450 [facility] Comment on above: Performed By: #### L 500.4050, L100.0100, L500.4100 #### [facility] [address] [place], [address] RBC (Bld) [#/Vol] 4.69 10*6/uL Normal 4.2-5.4 [facility] Comment on above: Performed By: #### L 500.4050, L100.0100, L500.4100 #### [facility] [address] [place], [address] RDW SD 44.7 fl High 35.1-43.9 [facility] Comment on above: Performed By: #### L 500.4050, L100.0100, L500.4100 #### [facility] [address] [place], [address] WBC (Bld) [#/Vol] 9.9 10*3/uL Normal 4.4-11.0 [facility] Comment on above: Performed By: #### L 500.4050, L100.0100, L500.4100 #### [facility] [address] [place], [address] [facility] 03-04-2024 Albumin [Mass/Vol] 3.3 g/dL Normal 3.2-5.0 [facility] Comment on above: Performed By: #### L 500.4050, L100.0100, L500.4100 #### [facility] [address] [place], [address] Albumin/Globulin [Mass ratio] 0.8 {ratio} Low 0.9-2.4 [facility] Comment on above: Performed By: #### L 500.4050, L100.0100, L500.4100 #### [facility] [address] [place], [address] ALK P 119 U/L High 45-117 [facility] Comment on above: Performed By: #### L 500.4050, L100.0100, L500.4100 #### [facility] [address] [place], [address] ALT [Catalytic activity/Vol] 26 U/L Normal 13-56 [facility] Comment on above: Performed By: #### L 500.4050, L100.0100, L500.4100 #### [facility] [address] [place], [address] AST [Catalytic activity/Vol] 10 U/L Low 15-37 [facility] Comment on above: Performed By: #### L 500.4050, L100.0100, L500.4100 #### [facility] [address] [place], [address] Bilirubin [Mass/Vol] 0.40 mg/dL Normal 0.20-1.00 [facility] Comment on above: Result Comment: For patients on eltrombopag therapy, use of Dimension [place] TBIL is not recommended. Performed By: #### L 500.4050, L100.0100, L500.4100 #### [facility] [address] [place], [address] BUN/CRE 19.5 RATIO Normal 10-20 [facility] Comment on above: Performed By: #### L 500.4050, L100.0100, L500.4100 #### [facility] [address] [place], [address] CA,Total 8.9 mg/dL Normal 8.5-10.1 [facility] Comment on above: Performed By: #### L 500.4050, L100.0100, L500.4100 #### [facility] [address] [place], [address] Chloride [Moles/Vol] 105 mmol/L Normal 98-107 [facility] Comment on above: Performed By: #### L 500.4050, L100.0100, L500.4100 #### [facility] [address] [place], [address] CO2 [Moles/Vol] 24.0 mmol/L Normal 21.0-32.0 [facility] Comment on above: Performed By: #### L 500.4050, L100.0100, L500.4100 #### [facility] [address] [place], [address] Creatinine [Mass/Vol] 0.67 mg/dL Normal 0.55-1.02 [facility] Comment on above: Result Comment: The validity of the calculated GFR GFRAA in patients over 70 years has not been determined. Clinical correlation is essential. Performed By: #### L 500.4050, L100.0100, L500.4100 #### [facility] [address] [place], [address] EST GFR - AA 131 mL/min Normal >60 [facility] Comment on above: Result Comment: Afri can [place] GFR Calc Performed By: #### L 500.4050, L100.0100, L500.4100 #### [facility] [address] [place], [address] GAP 5 Normal 5-15 [facility] Comment on above: Performed By: #### L 500.4050, L100.0100, L500.4100 #### [facility] [address] [place], [address] GFR/1.73 sq M.predicted among non-blacks MDRD (S/P/Bld) [Vol rate/Area] 108 mL/min/{1.73_m2} Normal >60 [facility] Comment on above: Result Comment: Non- GFR Calc Performed By: #### L 500.4050, L100.0100, L500.4100 #### [facility] [address] [place], [address] Globulin (S) [Mass/Vol] 4.2 g/dL Normal 2.2-4.2 [facility] Comment on above: Performed By: #### L 500.4050, L100.0100, L500.4100 #### [facility] [address] [place], [address] Glucose [Mass/Vol] 101 mg/dL Normal 74-106 [facility] Comment on above: Result Comment: Fast ing Glucose result from 100 to 125 mg/dL suggests IMPAIRED HOMEOSTASIS per A.D.A. criteria. Performed By: #### L 500.4050, L100.0100, L500.4100 #### [facility] [address] [place], [address] Potassium [Moles/Vol] 3.8 mmol/L Normal 3.5-5.1 [facility] Comment on above: Performed By: #### L 500.4050, L100.0100, L500.4100 #### [facility] [address] [place], [address] Sodium [Moles/Vol] 134 mmol/L Low 136-145 [facility] Comment on above: Performed By: #### L 500.4050, L100.0100, L500.4100 #### [facility] [address] [place], [address] T PROT 7.5 g/dL Normal 6.4-8.2 [facility] Comment on above: Performed By: #### L 500.4050, L100.0100, L500.4100 #### [facility] [address] [place], [address] Urea nitrogen [Mass/Vol] 13 mg/dL Normal 12-02 [facility] Comment on above: Performed By: #### L 500.4050, L100.0100, L500.4100 #### [facility] [address] [place], [address] Lipid Profileon 03-04-2024 Cholesterol [Mass/Vol] 183 mg/dL Normal 200 [facility] Comment on above: Result Comment: <200 mg/dL Desirable 200-240 mg/dL Borderline >240 mg/dL High Risk Performed By: #### L 500.4050, L100.0100, L500.4100 #### [facility] [address] [place], [address] Cholesterol in HDL [Mass/Vol] 27 mg/dL Low [facility] Comment on above: Result Comment: The drugs N-Acetylcysteine and Metamizole may falsely depress this assay. Reference Range HDL <40 mg/dL Low HDL Cholesterol HDL >or= 60 mg/dL High HDL Cholesterol Performed By: #### L 500.4050, L100.0100, L500.4100 #### [facility] [address] [place], [address] Cholesterol in LDL [Mass/Vol] 107 mg/dL Normal 0-130 [facility] Comment on above: Performed By: #### L 500.4050, L100.0100, L500.4100 #### [facility] [address] [place], [address] Cholesterol in VLDL [Mass/Vol] 49 mg/dL High 5-40 [facility] Comment on above: Performed By: #### L 500.4050, L100.0100, L500.4100 #### [facility] [address] [place], [address] Triglyceride [Mass/Vol] 246 mg/dL High [facility] Comment on above: Result Comment: The drugs N-Acetylcysteine and Metamizole may falsely depress this assay. Serum Triglycerides Reference Interval Normal <150 mg/dL Borderline high 150 - 199 mg/dL High 200 - 499 mg/dL Very High > or = 500 mg/dL Performed By: #### L 500.4050, L100.0100, L500.4100 #### [facility] [address] [place], [address] LABORATORYOrdered By: Rupert Woodall on 06-12-2022 Albumin DL <= 20 mg/L (U) [Mass/Vol] 2762 mcg/dL Invalid Interpretation Code AO ADM SS Albumin/Creatinine DL <= 20 mg/L (U) [Mass ratio] 21 mcg/mg Invalid Interpretation Code 0 - 30 mcg/mg AO ADM SS Creatinine (U) [Mass/Vol] 134.2 mg/dL Invalid Interpretation Code 28.0 - 117.0 mg/dL AO ADM SS MALBRon 06-12-2022 U Creatinine 134.2 mg/dL High 28.0-117.0 [facility] ([place]) Comment on above: Performed By: #### M ALBR #### [employer] [address] [address] U Microalb 2762 mcg/dL Normal [facility] ([place]) Comment on above: Performed By: #### M ALBR #### [employer] [address] [address] U Ratio Alb/Cre 21 mcg/mg Normal 0-30 [facility] ([place]) Comment on above: Performed By: #### M ALBR #### [employer] [address] [address] Auto Diffon 07-16-2018 Basophils #/vol (Bld) 0.1 E3/mcL Normal 0.0-0.[address] [facility] Comment on above: Order Comment: Order Added by Discern Expert. Performed By: #### 2 [id number] #### HEN[employer]Y [employer] [address] [place] [address] Basophils/100 WBC (Bld) 1.1 % Normal 0.0-2.0 [facility] Comment on above: Order Comment: Order Added by Discern Expert. Performed By: #### 2 [id number] #### HENRRY [employer] [address] [place] [address] Eos Absolute 0.2 E3/mcL Normal 0.0-0.7 [facility] Comment on above: Order Comment: Order Added by Discern Expert. Performed By: #### 2 [id number] #### HEN[employer]Y [employer] [address] [place] [address] Eosinophils/100 WBC (Bld) 2.1 % Normal 0.0-11.0 [facility] Comment on above: Order Comment: Order Added by Discern Expert. Performed By: #### 2 [id number] #### HENRRY [facility] [place] [address] Lymphocytes #/vol (Bld) 2.7 E3/mcL Normal 1.2-3.4 [facility] Comment on above: Order Comment: Order Added by Discern Expert. Performed By: #### 2 [id number] #### HENRRY [employer] [address] [place] [address] Lymphocytes/100 WBC (Bld) 26.9 % Normal 20.0-55.0 [facility] Comment on above: Order Comment: Order Added by Discern Expert. Performed By: #### 2 [id number] #### HENRRY [employer] [address] [place] [address] [place] Absolute 0.6 E3/mcL Normal 0.0-0.7 [facility] Comment on above: Order Comment: Order Added by Discern Expert. Performed By: #### 2 [id number] #### HENRRY [address]emo [address] [place] [address] Monocytes/100 WBC (Bld) 5.7 % Normal 0.0-10.0 [facility] Comment on above: Order Comment: Order Added by Discern Expert. Performed By: #### 2 [id number] #### HENRRY [employer] [address] [place] [address] Neutro Absolute 6.4 E3/mcL Normal 1.4-6.5 [facility] Comment on above: Order Comment: Order Added by Discern Expert. Performed By: #### 2 [id number] #### HENRRY [employer] [address] [place] [address] Neutro Auto 64.2 % Normal 37.0-75.0 [facility] Comment on above: Order Comment: Order Added by Discern Expert. Performed By: #### 2 [id number] #### HENRRY Rem[employer] [address] [place] [address] BMPon 07-16-2018 Anion gap molar conc 10 mmol/L Normal 10-20 [facility] Comment on above: Performed By: #### 2 [id number] #### HEN[employer]Y [employer] [address] [place] [address] Calcium mass conc 9.3 mg/dL Normal 8.6-10.3 [facility] Comment on above: Performed By: #### 2 [id number] #### [employer] [address] [place] [address] Chloride molar conc 105 mmol/L Normal 98-107 [facility] Comment on above: Performed By: #### 2 [id number] #### H[employer]Y [employer] [address] [place] [address] CO2 molar conc 26.0 mmol/L Normal 21.0-32.0 [facility] Comment on above: Performed By: #### 2 [id number] #### [employer]Y [employer] [address] [place] [address] Creatinine mass conc 0.5 mg/dL Normal 0.5-1.1 [facility] Comment on above: Performed By: #### 2 [id number] #### [employer] [address] [place] [address] Glucose mass conc 107 mg/dL High 70-99 [facility] Comment on above: Performed By: #### 2 [id number] #### [employer] [address] [place] [address] 49323 Potassium molar conc 3.8 mmol/L Normal 3.5-5.3 [facility] Comment on above: Performed By: #### 2 [id number] #### [employer] [address] [place] [address] 88921 Sodium molar conc 137 mmol/L Normal 136-145 [facility] Comment on above: Performed By: #### 2 [id number] #### [employer] [address] [place] [address] 82758 Urea nitrogen mass conc 13 mg/dL Normal 6-23 [facility] Comment on above: Performed By: #### 2 [id number] #### [employer] [address] [place] [address] 11503 Urea nitrogen/Creatinine mass ratio 26.0 ratio Normal 5.4-30.0 [facility] Comment on above: Performed By: #### 2 [id number] #### [employer] [address] [place] [address] 53945 CBC w/ Auto Diffon 9 Erythrocyte distribution width Ratio (RBC) 14.9 % High 11.5-14.5 [facility] Comment on above: Performed By: #### 2 [id number] #### [employer] [address] [place] [address] 10041 Hematocrit Volume Fraction (Bld) 37.5 % Normal 36.0-48.0 [facility] Comment on above: Performed By: #### 2 [id number] #### [employer] [address] [place] [address] Hemoglobin mass conc (Bld) 12.3 g/dL Normal 12.0-16.0 [facility] Comment on above: Performed By: #### 2 [id number] #### [employer] [address] [place] [address] MCH Entitic mass (RBC) 26.2 pg Low 27.0-31.0 [facility] Comment on above: Performed By: #### 2 [id number] #### [employer] [address] [place] [address] MCHC mass conc (RBC) 32.8 g/dL Low 33.0-37.0 [facility] Comment on above: Performed By: #### 2 [id number] #### [employer] [address] [place] [address] MCV Entitic volume (RBC) 79.8 fL Normal 78.0-100.0 [facility] Comment on above: Performed By: #### 2 [id number] #### [employer] [address] [place] [address] Platelet mean volume Entitic volume (Bld) 7.6 fL Normal 7.4-11.0 [facility] Comment on above: Performed By: #### 2 [id number] #### [employer] [address] [place] [address] Platelets #/vol (Bld) 374 E3/mcL Normal 130-[address] [facility] Comment on above: Performed By: #### 2 [id number] #### [employer] [address] [place] [address] RBC #/vol (Bld) 4.70 E6/mcL Normal 3.90-5.[address] [facility] Comment on above: Performed By: #### 2 [id number] #### [employer] [address] [place] [address] WBC #/vol (Bld) 9.9 E3/mcL Normal 3.6-11.0 [facility] Comment on above: Performed By: #### 2 [id number] #### [facility]EN[employer]Y [facility] [place] [address] D-Dimeron 07-16-2018 D-Dimer 386.00 ng/mL Normal <=500.00 [facility] Comment on above: Result Comment: When the concentration of D-dimer is below the district fire chief's cutoff, 500 ng/mL FEU, it may be possible to exclude the diagnosis of DVT and PE in conjunction with a clinical pretest probability assessment. Performed By: #### 2 [id number] #### [employer] Rem[facility] [place] [address] Magnesiumon 07-16-2018 Magnesium mass conc 2.0 Int._Unit/L Normal 1.6-2.4 [facility] Comment on above: Performed By: #### 2 [id number] #### [employer] [address] [place] [address] PTon 07-16-2018 INR Coag RelTime (PPP) 1.0 {INR} Normal 0.9-1.1 [facility] Comment on above: Result Comment: INR Recommended Therapeutic ranges: Prophylaxis/treatment of DVT and PE..........2.0-3.0 Prevention of systemic embolism.................2.0-3.0 Mechanical prosthetic values........................2.5-3.5 CRITICAL VALUE.........................................> 4.0 NOTE: New methodology started 05/31/2018 Performed By: #### 2 [id number] #### [employer] [facility] [place] [address] Prothrombin time (PT) Coag time (PPP) 12.1 second(s) Normal 9.7-12.7 [facility] Comment on above: Result Comment: NOTE : New reference range established on 05/31/2018 due to change in methodology. Performed By: #### 2 [id number] #### [employer] [address] [place] [address] PTTon 07-16-2018 aPTT Coag time (Bld) 38 second(s) Normal 28-38 [facility] Comment on above: Result Comment: NOTE :New reference range established 05/31/2018 due to change in methodology. Performed By: #### 2 [id number] #### [employer] [address] [place] [address] Troponin-Ion 07-16-2018 Troponin I.cardiac mass conc 0.01 ng/mL Normal .00-.03 [facility] Comment on above: Performed By: #### 2 [id number] #### [employer] [address] [place] [address] XR Chest AP Portableon 07-16 XR Chest AP Portable Exam Date/Time: 07/16/2018 12:18 EST Reason for Exam: Chest pain Report STUDY: XR Chest AP Portable; 07/16/2018 12:18 pm INDICATION: Chest pain. COMPARISON: None. ACCESSION NUMBER(S): [id number] ORDERING CLINICIAN: Susan Zavaleta FINDINGS: A single AP portable radiograph of the chest was obtained. Multiple cardiac monitoring leads are seen over the chest. No focal infiltrate, pleural effusion or pneumothorax is identified. The cardiac silhouette is within normal limits for size. IMPRESSION: No focal infiltrate or pneumothorax is identified. FINAL REPORT Dictated: 07/16/2018 1:12 pm Rupa Marrufo MD Signed (Electronic Signature): 07/16/2018 1:12 pm Signed by: Rupa Marrufo MD Technologist: GLP Normal [facility] eGFRon 07-16-2018 GFR/1.73 sq M predicted among non-blacks MDRD vol rate/area (S/P/Bld) mL/min/{1.73_m2} Normal [facility] Comment on above: Order Comment: Order added by Discern Expert. Performed By: #### 1 [id number] #### [employer] [address] [place] [address] Vital Signs Date Time Vital Sign Value Performing Clinician Nicanor barrigay 01-07-2020 15:23-0400 Body Temperature 98.01 [degF] Ming mary Kitchen [facility] 01-07-2020 15:23-0400 BP Diastolic 89 mm[Hg] Nathalie Stackrt [facility] 01-07-2020 15:23-0400 BP Systolic 136 mm[Hg] Nathalie browning [facility] 01-07-2020 15:23-0400 Pulse (Heart Rate) 99 /min Ming Kitchen [facility] 01-07-2020 15:23-0400 Respiratory Rate 16 /min [facility] Encounters Encounter Date Encounter Type Care Provider Facility Start: 04-06-2024 End: 04-06-2024 ambulatory [facility] Facility:[facility] Start: 03-26-2024 Encounter for genera l adult medical examination with abnormal findings [facility] Start: 03-04-2024 End: 03-04-2024 ambulatory [facility] Facility:[facility] Start: 06-12-2022 End: 06-17-2022 ambulatory BISHNU RAO DO Facility: Start: 06-12-2022 End: 06-16-2022 Outreach Lab BISHNU RAO DO [facility] Start: 01-07-2020 End: 01-07-2020 Patient encounter procedure PHYSICIAN NO [facility] Start: 01-07-2020 End: 01-07-2020 Office outpatient visit 15 minutes Nathalie Wenn Leonora Work Phone: [facility] [place] Comment on above: Acute otitis externa of both ears, unspecified type (Primary Dx); Ear pain, bilateral Start: 07-16-2018 End: 07-16-2018 Emergency department patient visit Jarvis Ross Facility:[facility] Start: 07-16-2018 Patient encounter procedure Facility:[id number] Start: 12-09-2016 Ambulatory UNKNOWN PROVIDER [facility] Procedures Date Procedure Procedure Detail Performing Clinician Tonsillectomy Cece Enciso Tonsillectomy BISHNU RAO DO Plan of Treatment Date Care Activity Detail Author Start: 05-18-2027 Tetanus vaccination Tetanus: Every 1 0yrs [facility] Start: 01-17-2020 Influenza vaccination given Se quential Influenza Vaccine (#1) [facility] Start: 2008 Hepatitis C antibody , confirmatory test Hepatitis C Screening [facility] Start: 2005 HIV screening HIV Screening [facility] Start: 1993 History and physical examination, annual for health maintenance Wellness Visit [facility] Start: 1990 Screening for malign ant neoplasm of cervix Pap Smear [facility] Immunizations Immunization Date Immunization Notes Care Provider Fa eduardo 03-08-2021 SARS-CoV-2 mRNA (tozinameran) vaccine BISHNU BAEZALAY DO [facility] Comment on above: Result Comment: 2021: TPVAL 02-15-2021 SARS-CoV-2 mRNA (tozinameran) vaccine BISHNU MAIRA DO [facility] Comment on above: Result Comment: 2020: TPVAL 02-15-2018 tetanus toxoid, redu liseth diphtheria toxoid, and acellular pertussis vaccine, adsorbed BISHNU MAIRA DO [facility] 02-14-2018 tetanus toxoid, redu liseth diphtheria toxoid, and acellular pertussis vaccine, adsorbed BISHNU MAIRA DO [facility] 05-18-2017 tetanus toxoid, redu liseth diphtheria toxoid, and acellular pertussis vaccine, adsorbed BISHNU MAIRA DO [facility] 02-14-2017 tetanus toxoid, redu liseth diphtheria toxoid, and acellular pertussis vaccine, adsorbed BISHNU MAIRA DO [facility] 01-12-2006 hepatitis B vaccine, pediatric or pediatric/adolescent dosage Cece Zamorano DO [facility] Work Phone: 02-29-2004 hepatitis B vaccine, pediatric or pediatric/adolescent dosage [facility] Work Phone: 01-05-2004 hepatitis B vaccine, pediatric or pediatric/adolescent dosage Cece Zamorano DO [facility] Work Phone: 01-05-2004 measles, mumps and rubella virus vaccine Cece Zamorano DO [facility] Work Phone: Payers Date Payer Category Payer Self-pay 2022 Private Health Insurance [id number] 2018 Private Health Insurance 2018 Private Health Insurance [id number] 2018 Private Health Insurance MIREYA CARRIZALESA HMO/NTWK/OACCESS/OA+/PO S [id number] 2018-Present [id number] 1990 Unknown [id number] 1990 Unknown [id number] 1990 Unknown [id number] 1990 Unknown [id number] Unknown Unknown [id number] Unknown [id number] Social History Date Type Detail Facility Start: 01-07-2020 End: 01-17-2020 Tobacco smoking status HIIS Never smoker [facility] Start: 01-07-2020 Tobacco use and exposure Never used [facility] Start: 01-07-2020 Alcohol intake Current drinke r of alcohol (finding) [facility] Start: 01-07-2020 History SDOH Alcohol Frequency 2 [facility] Start: 01-07-2020 History SDOH Alcohol Std Drinks 99 [facility] Sex Assigned At Not on file [facility] Exposure to SARS-CoV-2 (event) [facility] NEGATED: Highlighted row - - [facility] Work Phone: Functional Status Date Assessment Result Facility NEGATED: Highlighted row Functional performance Functional status health issues are not documented Disease [facility] Work Phone: Mental Status Date Assessment Result Facility NEGATED: Highlighted row Cognitive function [Interpretation] Cognitive status health issues are not documented Disease [facility] Work Phone: Evaluation + Plan note Laboratory Note Date & Type Note Facility Evaluation + Plan note Future Appointments Appointment Date:08/07/2022 11:30:00 AM Scheduled Provider:BISHNU RAO DO Location:[facility] Appointment Type: OV Future Scheduled TestsThyroid Stimulating Hormone 06/12/22Complete Blood Count 06/12/22Lipid Profile 06/12/22Hepatitis C Antibody IgG 06/12/22Complete Metabolic Panel 06/12/22 [facility] Hospital course Narrative Note Date & Type Note Facility Hospital course Narrative No data available for this section [facility] Hospital Discharge instructions Note Date & Type Note Facility Hospital Discharge instructions No data available for this section [facility] Instructions Note Date & Type Note Facility Instructions Name Instructions not documented [facility] Work Phone: Progress note Note Date & Type Note Facility Progress note No data available for this section [facility] Summary Purpose Family History No Family History Records Found Grandfather Name Dates Details Family history of hyperchole sterolemia(V18.19, Z83.42) Status:Active Grandmother Name Dates Details Family history of hyperchole sterolemia(V18.19, Z83.42) Status:Active Mother Name Dates Details Family history of hypertensi on(V17.49, Z82.49) Status:Active Father Name Dates Details Family history of hyperchole sterolemia(V18.19, Z83.42) Status:Active Family history of hypertensi on(V17.49, Z82.49) Status:Active Family history of diabetes m quan(V18.0, Z83.3) Status:Active Advance Directives No Advanced Directives Records FoundDocuments on File Type Date Recorded Patient Dietary Service Aide Expl anation Advance Directives and Living Will Instructions * Patient Instructions* Nathalie Kitchen PA-C - 01/07/2020 3:56 PM EDT Brii, #1--Swimmers ear treatment---Floxin otic drops and oral cephalexin (antibiotics) #2---3 cocktails so to speak to try to alleviate/resolve / treat symptoms. Push fluids. TRY: Cocktail #1---cephalexin + mucinex; Cocktail #2-- sensimist Cocktail #3--decongestant/ xyzal (no decongestant with elevated bp) F/u with pcp should symptoms not reoslve in 10 days, or return here / go to ed if any concerns/symptoms worsen (see discharge instructions). Eustachian Tube Problems: Care Instructions Your Care Instructions The eustachian (say zag-YDQO-gdmp-un) tubes run between the inside of the ears and the throat. They keep air pressure stable in the ears. If your eustachian tubes become blocked, the air pressure in your ears changes. The fluids from a cold can clog eustachian tubes, causing pain in the ears. A quick change in air pressure can cause eustachian tubes to close up. This might happen when an airplane changes altitude or when a opener tender goes up or down underwater. Eustachian tube problems often clear up on their own or after antibiotic treatment. If your tubes continue to be blocked, you may need surgery. Follow-up care is a alfaro part of your treatment and safety. Be sure to make and go to all appointments, and call your doctor if you are having problems. It's also a good idea to know your test resultsand keep a list of the medicines you take. How can you care for yourself at home? To ease ear pain, apply a warm washcloth or a heating pad set on low. There may be some drainage from the ear when the heat melts earwax. Put a cloth between the heat source and your skin. Do not usea heating pad with children. If your doctor prescribed antibiotics, take them as directed. Do not stop taking them just because you feel better. You need to take the full course of antibiotics. Your doctor may recommend dtoh-zoa-ymeiuea medicine. Be safe with medicines. Oral or nasal decongestants may relieve ear pain. Avoid decongestants that are combined with antihistamines, which tend tocause more blockage. But if allergies seem to be the problem, your doctor may recommend a combination. Be careful with cough and cold medicines. Don't give them to children younger than 6, because they don't work for children that age and can even be harmful. For children 6 and older, always followall the instructions carefully. Make sure you know how much medicine to give and how long to use it. And use the dosing device if one is included. When should you call for help? Call your doctor now or seek immediate medical care if: You develop sudden, complete hearing loss. You have severe pain or feel dizzy. You have new or increasing pus or blood draining from your ear. You have redness, swelling, or pain around or behind the ear. Watch closely for changes in your health, and be sure to contact your doctor if: You do not get better after 2 weeks. You have any new symptoms, such as itching or a feeling of fullness in the ear. Where can you learn more? Log into your personal health record on https://Translimithart.[email or web address] and enter Y822 in the Education box to learn more about Eustachian Tube Problems: Care Instructions. Current as of: December 13, 2018 Content Version: 12.5 [employer]. Care instructions adapted under license by your healthcare professional. If you have questions about a medical condition or this instruction, always ask your healthcare professional. [employer] disclaims any warranty or liability for your use of this information. Swimmer's Ear: Care Instructions Your Care Instructions Swimmer's ear (otitis externa) is inflammation or infection of the ear canal. This is the passage that leads from the outer ear to the eardrum. Any water, sand, or other debris that gets into the earcanal and stays there can cause swimmer's ear. Putting cotton swabs or other items in the ear to clean it can also cause this problem. Swimmer's ear can be very painful. But you can treat the pain and infection with medicines. You should feel better in a few days. Follow-up care is a alfaro part of your treatment and safety. Be sure to make and go to all appointments, and call your doctor if you are having problems. It's also a good idea to know your test resultsand keep a list of the medicines you take. How can you care for yourself at home? Cleaning and care Use antibiotic drops as your doctor directs. Do not insert ear drops (other than the antibiotic ear drops) or anything else into the ear unless your doctor has told you to. Avoid getting water in the ear until the problem clears up. Use cotton lightly coated with petroleum jelly as an earplug. Do not use plastic earplugs. Use a men's custom hair piece consultant set on low to carefully dry the ear after you shower. To ease ear pain, hold a warm washcloth against your ear. Take pain medicines exactly as directed. ? If the doctor gave you a prescription medicine for pain, take it as prescribed. ? If you are not taking a prescription pain medicine, ask your doctor if you can take an adon-skb-aydkkib medicine. Inserting ear drops Warm the drops to body temperature by rolling the container in your hands. Or you can place it in acup of warm water for a few minutes. Lie down, with your ear facing up. Place drops inside the ear. Follow your doctor's instructions (or the directions on the label) for how many drops to use. Gently wiggle the outer ear or pull the ear up and back to help the drops getinto the ear. It's important to keep the liquid in the ear canal for 3 to 5 minutes. When should you call for help? Call your doctor now or seek immediate medical care if: You have a new or higher fever. You have new or worse pain, swelling, warmth, or redness around or behind your ear. You have new or increasing pus or blood draining from your ear. Watch closely for changes in your health, and be sure to contact your doctor if: You are not getting better after 2 days (48 hours). Where can you learn more? Log into your personal health record on [email or web address] Techn[employer]iest.[email or web address]Rapportive and enter C706 in the Education box to learn more about Swimmer's Ear: Care Instructions. Current as of: December 13, 2018 Content Version: 12.5 [employer]. Care instructions adapted under license by your healthcare professional. If you have questions about a medical condition or this instruction, always ask your healthcare professional. [employer] disclaims any warranty or liability for your use of this information. documented in this encounter History of Present Illness * Nathalie Kitchen PA-C - 01/07/2020 3:36 PM EDT Patient Name: [facility] Location: [address] [address] Date Of : Date Of Visit: 1990 01/08/2020 MRN# Provider: [id number] Nathalie Kitchen PA-C Chief Complaint Patient presents with Otalgia both ears painful Assessment & Plan 1. Acute otitis externa of both ears, unspecified type 2. Ear pain, bilateral Return if symptoms worsen or fail to improve. Medical Decision Making Hx of BPV---has antivert at home. Any worsening symptoms, headache, lauren with focal deficits---ER! We will address swimmers ear and eustachian tube dysfunction; no focal abnl or deficits. #1--Swimmers ear treatment---Floxin otic drops and oral cephalexin (antibiotics) #2---3 cocktails so to speak to try to alleviate/resolve / treat symptoms. Push fluids. TRY: Cocktail #1---cephalexin + mucinex; Cocktail #2-- sensimist Cocktail #3--decongestant/ xyzal (no decongestant with elevated bp) F/u with pcp should symptoms not reoslve in 10 days, or return here / go to ed if any concerns/symptoms worsen (see discharge instructions). Pt is nontoxic, afebrile, w/o ams and verbalized good understanding and agreement. Additional Clinical Comments Discussed over the counter medications for symptomatic management and side effects of medications. Recommended taking all medications with food and to stop medications if they develop any signs of anallergic reaction. Educated patient and/or guardian about signs and symptoms that would warrant further immediate evaluation. Recommended that they should return to urgent care, make an appointment with their family physician, or go to the emergency room if symptoms persist or get acutely worse. Recommended follow upwithin the next week with their PCP or to get established with a PCP soon in order to follow up appropriately. [facility] COVID-19 Mask Status: Does the patient have classic COVID-19 symptoms? No, the patient does not have COVID-19 symptoms, the patient WAS wearing a mask during the visit and I (the provider) WAS wearing a mask during the visit. Subjective 29 y.o. female presents with Otalgia (both ears painful ) The pt presents with c/o bilat ear pain x 2 wks ago/after going to [facility] [place]. NO bleeding or discharge from ears. Pt works at [employer]---vet checked ears and said a lot of wax, fluid and redness. Did a candle wax treatment otc. No doc temp, nausea/vomiting, headache, neck pain/stiffness. Pt does have hx of migraines. THE PT HAS NOT BEEN IN CLOSE CONTACT WITH ANYONE CONFIRMED TO HAVE COVID-19 IN THE PAST 14 DAYS. THE PT HAS NOT HAD A FEVER IN THE PAST 24 HOURS. THE PT HAS NOT HAD A COUGH OR SOB IN THE PAST 24 HOURS. THE PT AND PROVIDER WORE MASKS THE ENTIRE VISIT IN URGENT CARE. The provider also used gloves the entire visit in the Urgent Care. Otalgia There is pain in both ears. This is a new problem. The current episode started 1 to 4 weeks ago. The problem occurs constantly. The problem has been gradually worsening. There has been no fever. The pain is at a severity of 2/10. The pain is mild. Associated symptoms include a sore throat. Pertinent negatives include no abdominal pain, coughing, diarrhea, ear discharge, headaches, hearing loss, neck pain, rash, rhinorrhea or vomiting. Associated symptoms comments: At night---sore throat. + pndrip. Pt with hx of minimal seasonal allergies. Treatments tried: ear wax. The treatment provided no relief. There is no history of a chronic ear infection, hearing loss or a tympanostomy tube. Review Of Systems Review of Systems Constitutional: Negative. HENT: Positive for ear pain, postnasal drip and sore throat. Negative for congestion, dental problem, drooling, ear discharge, facial swelling, hearing loss, mouth sores, nosebleeds, rhinorrhea, sinus pressure, sinus pain, sneezing, tinnitus, trouble swallowing and voice change. Pt needs to get wisdom teeth removed, has not yet. Eyes: Negative. Respiratory: Negative. Negative for cough, shortness of breath and wheezing. Cardiovascular: Negative. Gastrointestinal: Negative. Negative for abdominal pain, diarrhea and vomiting. Genitourinary: Negative. Musculoskeletal: Negative. Negative for neck pain. Skin: Negative. Negative for rash. Neurological: Negative. Negative for seizures, syncope, speech difficulty and headaches. Hematological: Negative. Medical History Past Medical History: Diagnosis Date Hypertension History reviewed. No pertinent surgical history. There is no problem list on file for this patient. Social History Social History Tobacco Use Smoking status: Never Smoker Smokeless tobacco: Never Used Substance Use Topics Alcohol use: Yes Frequency: Monthly or less Drug use: Never Family History History reviewed. No pertinent family history. Objective Physical Exam BP 136/89 Pulse 99 Temp 98 F (36.7 C) Resp 16 LMP 01/01/2020 (Exact Date) Vision/Hearing Exam:No exam data present Physical Exam Vitals signs and nursing note reviewed. Constitutional: General: She is not in acute distress. Appearance: Normal appearance. She is not ill-appearing, toxic-appearing or diaphoretic. HENT: Head: Normocephalic and atraumatic. Right Ear: There is no impacted cerumen. Left Ear: There is no impacted cerumen. Nose: Nose normal. No congestion or rhinorrhea. Mouth/Throat: Mouth: Mucous membranes are moist. Pharynx: No oropharyngeal exudate or posterior oropharyngeal erythema. Eyes: General: No scleral icterus. Right eye: No discharge. Left eye: No discharge. Extraocular Movements: Extraocular movements intact. Conjunctiva/sclera: Conjunctivae normal. Neck: Musculoskeletal: Full passive range of motion without pain, normal range of motion and neck supple.No neck rigidity or muscular tenderness. Comments: No carotid bruits bilat. Cardiovascular: Rate and Rhythm: Normal rate and regular rhythm. Pulses: Normal pulses. Heart sounds: Normal heart sounds. No murmur. No friction rub. No gallop. Pulmonary: Effort: Pulmonary effort is normal. No respiratory distress. Breath sounds: Normal breath sounds. No stridor. No wheezing, rhonchi or rales. Chest: Chest wall: No tenderness. Abdominal: General: Abdomen is flat. There is no distension. Palpations: Abdomen is soft. Tenderness: There is no abdominal tenderness. There is no guarding. Musculoskeletal: Normal range of motion. Lymphadenopathy: Cervical: No cervical adenopathy. Skin: General: Skin is warm. Neurological: General: No focal deficit present. Mental Status: She is alert and oriented to person, place, and time. Mental status is at baseline. GCS: GCS eye subscore is 4. GCS verbal subscore is 5. GCS motor subscore is 6. Cranial Nerves: Cranial nerves are intact. Sensory: Sensation is intact. Motor: Motor function is intact. Coordination: Coordination is intact. Gait: Gait is intact. Deep Tendon Reflexes: Reflexes are normal and symmetric. Babinski sign absent on the right side. Babinski sign absent on the left side. Reflex Scores: Tricep reflexes are 2+ on the right side and 2+ on the left side. Bicep reflexes are 2+ on the right side and 2+ on the left side. Brachioradialis reflexes are 2+ on the right side and 2+ on the left side. Patellar reflexes are 2+ on the right side and 2+ on the left side. Achilles reflexes are 2+ on the right side and 2+ on the left side. Psychiatric: Mood and Affect: Mood normal. Behavior: Behavior normal. Thought Content: Thought content normal. Judgment: Judgment normal. Procedure Notes Procedures Results No results found for this or any previous visit (from the past 168 hour(s)). No orders to display Orders Placed This Visit No orders of the defined types were placed in this encounter. Medication List At End Of Visit Current Outpatient Medications Medication Sig Dispense Refill letrozole (FEMARA) 2.5 mg tablet cephALEXin (KEFLEX) 500 MG capsule 1 capsule po tid x 7 days . 21 capsule 0 ofloxacin (FLOXIN) 0.3 % otic solution 10 drops in affected ear(s) once daily x 7 days . 5 mL 0 No current facility-administered medications for this visit. Patient Instructions Brii, #1--Swimmers ear treatment---Floxin otic drops and oral cephalexin (antibiotics) #2---3 cocktails so to speak to try to alleviate/resolve / treat symptoms. Push fluids. TRY: Cocktail #1---cephalexin + mucinex; Cocktail #2-- sensimist Cocktail #3--decongestant/ xyzal (no decongestant with elevated bp) F/u with pcp should symptoms not reoslve in 10 days, or return here / go to ed if any concerns/symptoms worsen (see discharge instructions). Eustachian Tube Problems: Care Instructions Your Care Instructions The eustachian (say exv-BCJW-ghyp-un) tubes run between the inside of the ears and the throat. They keep air pressure stable in the ears. If your eustachian tubes become blocked, the air pressure in your ears changes. The fluids from a cold can clog eustachian tubes, causing pain in the ears. A quick change in air pressure can cause eustachian tubes to close up. This might happen when an airplane changes altitude or when a opener tender goes up or down underwater. Eustachian tube problems often clear up on their own or after antibiotic treatment. If your tubes continue to be blocked, you may need surgery. Follow-up care is a alfaro part of your treatment and safety. Be sure to make and go to all appointments, and call your doctor if you are having problems. It's also a good idea to know your test resultsand keep a list of the medicines you take. How can you care for yourself at home? To ease ear pain, apply a warm washcloth or a heating pad set on low. There may be some drainage from the ear when the heat melts earwax. Put a cloth between the heat source and your skin. Do not usea heating pad with children. If your doctor prescribed antibiotics, take them as directed. Do not stop taking them just because you feel better. You need to take the full course of antibiotics. Your doctor may recommend ogiu-vhu-wkfhzel medicine. Be safe with medicines. Oral or nasal decongestants may relieve ear pain. Avoid decongestants that are combined with antihistamines, which tend tocause more blockage. But if allergies seem to be the problem, your doctor may recommend a combination. Be careful with cough and cold medicines. Don't give them to children younger than 6, because they don't work for children that age and can even be harmful. For children 6 and older, always followall the instructions carefully. Make sure you know how much medicine to give and how long to use it. And use the dosing device if one is included. When should you call for help? Call your doctor now or seek immediate medical care if: You develop sudden, complete hearing loss. You have severe pain or feel dizzy. You have new or increasing pus or blood draining from your ear. You have redness, swelling, or pain around or behind the ear. Watch closely for changes in your health, and be sure to contact your doctor if: You do not get better after 2 weeks. You have any new symptoms, such as itching or a feeling of fullness in the ear. Where can you learn more? Log into your personal health record on [email or web address]://[employer] and enter Y822 in the Education box to learn more about Eustachian Tube Problems: Care Instructions. Current as of: December 13, 2018 Content Version: 12.5 [employer]. Care instructions adapted under license by your healthcare professional. If you have questions about a medical condition or this instruction, always ask your healthcare professional. [employer] disclaims any warranty or liability for your use of this information. Swimmer's Ear: Care Instructions Your Care Instructions Swimmer's ear (otitis externa) is inflammation or infection of the ear canal. This is the passage that leads from the outer ear to the eardrum. Any water, sand, or other debris that gets into the earcanal and stays there can cause swimmer's ear. Putting cotton swabs or other items in the ear to clean it can also cause this problem. Swimmer's ear can be very painful. But you can treat the pain and infection with medicines. You should feel better in a few days. Follow-up care is a alfaro part of your treatment and safety. Be sure to make and go to all appointments, and call your doctor if you are having problems. It's also a good idea to know your test resultsand keep a list of the medicines you take. How can you care for yourself at home? Cleaning and care Use antibiotic drops as your doctor directs. Do not insert ear drops (other than the antibiotic ear drops) or anything else into the ear unless your doctor has told you to. Avoid getting water in the ear until the problem clears up. Use cotton lightly coated with petroleum jelly as an earplug. Do not use plastic earplugs. Use a men's custom hair piece consultant set on low to carefully dry the ear after you shower. To ease ear pain, hold a warm washcloth against your ear. Take pain medicines exactly as directed. ? If the doctor gave you a prescription medicine for pain, take it as prescribed. ? If you are not taking a prescription pain medicine, ask your doctor if you can take an ukkj-cct-aycynnw medicine. Inserting ear drops Warm the drops to body temperature by rolling the container in your hands. Or you can place it in acup of warm water for a few minutes. Lie down, with your ear facing up. Place drops inside the ear. Follow your doctor's instructions (or the directions on the label) for how many drops to use. Gently wiggle the outer ear or pull the ear up and back to help the drops getinto the ear. It's important to keep the liquid in the ear canal for 3 to 5 minutes. When should you call for help? Call your doctor now or seek immediate medical care if: You have a new or higher fever. You have new or worse pain, swelling, warmth, or redness around or behind your ear. You have new or increasing pus or blood draining from your ear. Watch closely for changes in your health, and be sure to contact your doctor if: You are not getting better after 2 days (48 hours). Where can you learn more? Log into your personal health record on [email or web address]://[employer] and enter C706 in the Education box to learn more about Swimmer's Ear: Care Instructions. Current as of: December 13, 2018 Content Version: 12.5 [id number] [employer]. Care instructions adapted under license by your healthcare professional. If you have questions about a medical condition or this instruction, always ask your healthcare professional. [employer] disclaims any warranty or liability for your use of this information. documented in this encounter Assessments Diagnosis Acute otitis externa of both ears, unspecified type- Primary Ear pain, bilateral Additional Source Comments INFORMATION SOURCE (unrecogn ized section and content) DATE CREATED AUTHOR 11/11/2017 [facility] DATE CREATED AUTHOR AUTHOR'S ORGANIZ ATION 07/17/2018 [facility] DATE CREATED AUTHOR AUTHOR'S ORGANIZ ATION 07/29/2018 [facility] DATE CREATED AUTHOR AUTHOR'S ORGANIZ ATION 01/07/2020 [facility] DATE CREATED AUTHOR AUTHOR'S ORGANIZ ATION 06/17/2022 [facility] ([place]) DATE CREATED AUTHOR AUTHOR'S ORGANIZ ATION 05/09/2024 [facility] Reason for Visit (unrecogniz ed section and content) Reason Comments Otalgia both ears painful Care Team (unrecognized sect ion and content) Care Team Personnel Name: BISHNU RAO DO Position: P4 Physician - Primary Care Member Role: Primary Care Physician Address: Address: [address] [place] [id number] [place] [address] Care Team Related Persons Name: IJEOMA DASILVA FOR RECORDS PERTAINING TO PATIENTS WHO ARE OR HAVE BEEN ENROLLED IN A CHEMICAL DEPENDENCY/SUBSTANCEABUSE PROGRAM, SOME INFORMATION MAY BE OMITTED. This clinical summary was aggregated from multiple sources. Caution should be exercised in using it in the provision of clinical care. This summary normalizes information from multiple sources, and as a consequence, information in this document may materially change the coding, format and clinical context of patient data. In addition, data may be omitted in some cases. CLINICAL DECISIONS SHOULD BE BASED ON THE PRIMARY CLINICAL RECORDS. [employer] [facility]. provides no warranty or guarantee of the accuracy or completeness of information in this document.
[2025-02-03 12:48] LABS: Hematocrit 37.9 % (37-47); Hemoglobin 12.2 g/dL (12.0-15.0); Immature Granulocytes Count 0.050 X10^3/uL (0.0-0.0); Mean Corp Hgb Conc 32.2 g/dL (32-36); Mean Corpuscular Volume 79.8 fL (81-99); Mean Platelet Vol. 9.9 fl (6.2-12.0); NRBC Flagged by Analyzer 0 % (0-5); Platelet Count 382 K/mm3 (150-450); RBC Distribution Width CV 14.9 % (11.6-14.6); RBC Distribution Width SD 43.0 fl (35.1-43.9); Red Blood Count 4.75 M/mm3 (4.2-5.4); White Blood Count 8.5 K/mm3 (4.4-11.0)
[2025-02-03 13:12] LABS: AST(SGOT) 25 U/L (<=31); Alanine Aminotransfer ALT/SGPT 31 U/L (<=34); Albumin, Serum 4.0 g/dL (3.5-5.0); Alkaline Phosphatase 107 U/L (35-104); Anion Gap 13 (5-15); BUN 12 mg/dL (4-19); BUN/Creat Ratio 18.4 RATIO (10-20); Calcium,Total 9.1 mg/dL (7.6-11.0); Carbon Dioxide 21.3 mmol/L (21.0-32.0); Chloride 104 mmol/L (98-108); Cholesterol 195 mg/dL (<=200); Globulin 3.4 g/dL (2.2-4.2); Glucose 100 mg/dL (70-99); Low Density Lipoprotein Calc. 112 mg/dL; Potassium 4.2 mmol/L (3.3-5.1); Triglycerides 254 mg/dL; Very Low Density Lipoprotein 51 mg/dL (5-40); cholesterol:hdl ratio screen 6.13
== END | disposition home or self-care (01) ==
LOC: BFHLAB 09:29
PROVIDERS: PCP Nurse Practitioner Family; Visit Provider Nurse Practitioner Family
DX: Z00.01 Encounter for general adult medical examination with abnormal findings (principal)
CPT/HCPCS: 36415; 80053; 80061; 85025

== ENCOUNTER → 2025-05-08 | Outpatient (CLI) | payer BC, SELFPAY ==
--- OUTSIDE RECORDS SUMMARY | 2025-05-08 19:46 | XMS RPT_ITS | CCD ---
Author Organization [facility] Care Team Providers Care Homicide Investigator Name Role Phone PROVIDER, UNKNOWN Unavailable Unavailable Zamorano, Cece Unavailable Unavailable Zamorano, Cece Unavailable Unavailable Ross, Jarvis Admitting Unavailable RossJarvis Attending Unavailable Alvin Rose Primary Care Unavailable NO, PHYSICIAN Primary Care Unavailable NATHALIE KITCHEN Attending Unavaila ble No, Physician Primary Care Provider Unavailabl e Zamorano DO, Cece Unavailable Unavailable Zamorano, Cece N Unavailable Unavailable Aguedaer LD, MS, RDN, Kavita Unavailable Un available BISHNU RAO DO Primary Care Physician BISHNU RAO DO Attending Unavailable BISHNU RAO DO Primary Care Unavailable Danie NURSING STAFFING COORDINATOR-C, Kanika Primary Care Physician Danie NURSING STAFFING COORDINATOR-C, Kanika Attending Physician [phone] Kanika Helton Attending Unavailable Kanika Helton Primary Care Unavailable Kanika Helton Referring Unavailable Kanika Helton Attending Unavailable Kanika Helton Primary Care Unavailable Allergies Allergy Classification Reported Allergen(s) Allergy Type Date of Onset Reaction(s) Facility (1 source) No Known Medication Allergies; Translations: [No Known Medication Allergies] Propensity to adverse reactions to drug (disorder) [facility] Repository Medications Current Medications Medication Drug Class(es) [...] dose, # 90 tab(s), 0 Refill(s), Pharmacy: [facility]/pharmacy #[id number], Anxiety Depression, 161.5, cm, 06/12/22 14:44:00 EST, Height Start Date: 06/12/22 Status: Ordered ibuprofen 200 mg oral tablet (1 source) Nonsteroidal Anti-inflammatory Drug Start: 03-30-2020 ibuprofen 200 mg oral tablet Dose : 400 mg = 2 tab(s), Oral, q6hr, PRN pain or fever, 0 Refill(s) Start Date: 03/30/20 Status: Ordered labetalol hydrochloride 100 mg oral tablet (3 sources) beta-Adrenergic [place] Start: 12-16-2016 labetalol 100 mg oral tablet Dose : 200 mg = 2 tab(s), Oral, BID, Increased dose, # 360 tab(s), 0 Refill(s), Pharmacy: [facility]/pharmacy #[id number], Hypertension, 161.5, cm, 06/12/22 14:44:00 EST, Height, kg, 06/12/22 14:44:00 EST, Dosing Weight Start Date: 06/12/22 Status: Ordered letrozole 2.5 mg oral tablet (1 source) Aromatase Inhibitor Start: 01-02-2020 letrozole (FEMARA) 2.5 mg tablet ofloxacin 3 mg/ml otic solution (1 source) Quinolone Antimicrobial Start: 01-07-2020 ofloxacin (FLOXIN) 0.3 % otic solution 10 drops in affected ear(s) once daily x 7 days . 5 mL 0 01/07/2020 Active ondansetron 4 mg disintegrating oral tablet (1 source) Serotonin-3 Receptor Antagonist Start: 09-15-2019 take 2 tablets by mouth every eight hours as needed for nausea sertraline 50 mg oral tablet (1 source) Serotonin Reuptake Inhibitor Start: 07-12-2018 take 1 tablet by mouth three times daily sulfamethoxazole 800 mg / trimethoprim 160 mg oral tablet (1 source) Dihydrofolate Reductase Inhibitor Antibacterial, Sulfonamide Antimicrobial Start: 09-15-2019 Completed/Discontinued Medications Medication Drug Class(es) Dates Sig (Normalized) Sig (Original) acetaminophen 325 mg / oxyCODONE hydrochloride 5 mg oral tablet (1 source) Opioid Agonist Start: 09-15-2019 End: 09-18-2019 Oxycodone-Acetamino phen 1 TABLET tablet Discontinued 1 - 2 {tbl} PO EVERY 6 HOURS NEEDED as needed for Pain 12 3 0 September 15, 2019 September 17, 2019 12:00am September 18, 2019 12:02am Cyst of ovary Unspecified ovarian cyst, unspecified side Blood Pressure Cuff (1 source) Start: 12-16-2016 Blood Pressure Cuff Elevated blood pressure without hypertension Quantity: 1 Refills: 0 Cece Zamorano DO Start : 16-Dec-2016 Active Problems Active Problems Problem Classification Problem Date Documented Da te Episodic/Chronic Abdominal pain (2 sources) Acute abdominal pain; Translations: [Abdominal pain, right upper quadrant] 09-16-2019 Episodic Allergic reactions (1 source) Eczema 04-08-2022 Episodic Anxiety disorders (1 source) Anxiety 04-08-2022 Chronic Conditions associated with dizziness or vertigo (1 source) Benign paroxysmal positional vertigo; Translations: [Benign paroxysmal vertigo, unspecified ear] 07-13-2018 Episodic Diseases of white blood cells (1 source) Leukocytosis; Translations: [Elevated white blood cell count, unspecified] 09-16-2019 Chronic Essential hypertension (5 sources) Hypertensive disorder; Translations: [Unspecified essential hypertension] Onset: 06-12-2022 01-17-2020 Chronic Headache, including migraine (2 sources) Episodic paroxysmal hemicrania, not intractable; Translations: [Episodic paroxysmal hemicrania, not intractable] Onset: 12-09-2016 Chronic Mood disorders (2 sources) Depressive disorder; Translations: [Depressive disorder, not elsewhere classified] 01-17-2020 Chronic Nonspecific chest pain (1 source) Left sided chest pain; Translations: [Chest pain, unspecified] 07-13-2018 Episodic Other ear and sense organ disorders [...] (1 source) Viral screening status 06-12-2022 Episodic Ovarian cyst (1 source) Cyst of ovary; Translations: [Unspecified ovarian cyst, unspecified side] 09-16-2019 Episodic Unclassified (2 sources) Patient encounter status 06-12-2022 Unclassified (1 source) Cough, unspecified; Translations: [Cough, unspecified] Onset: 05-05-2024 Urinary tract infections (2 sources) Acute urinary tract infection; Translations: [Urinary tract infection, site not specified] 09-16-2019 Episodic Past or Other Problems Problem Classification Problem Date Documented Date Episodic/Chronic Acute bronchitis (1 source) Acute bronchitis; Translations: [...] transaminase or lactic acid dehydrogenase [LDH]] Episodic NEGATED: Highlighted row has not occurred!Residual codes; unclassified (1 source) Disease Episodic Results Test Name Value Interpretation Reference Range Facility Absolute lymphocyte countOrd ered By: Kanika Helton on 02-03-2025 Lymphocytes Auto (Unsp spec) [#/Vol] 2.12 10*3/uL 0.83-4.51 [facility] Absolute neutrophil countOrd ered By: Kanika Helton on 02-03-2025 Neutrophils (Bld) [#/Vol] 5.6 10*3/uL 2.0-7.7 [facility] Anion gap in Serum or Plasma Ordered By: Kanika Helton on 02-03-2025 Anion gap [Moles/Vol] 13 mmol/L 5-15 [facility] Automated lymphocyte count a s percentage of total leukocytesOrdered By: Kanika Helton on 02-03-2025 Lymphocytes/100 WBC Auto (Unsp spec) 25.1 % 19-41 [facility] BUN/creatinine ratioOrdered By: Kanika Helton on 09-19-2025 Urea nitrogen/Creatinine [Mass ratio] 18.4 mg/mg 10-20 [facility] Basophil percentageOrdered B y: Kanika Helton on 02-03-2025 Basophils/100 WBC (Bld) 0.6 % 0-1 [facility] Bilirubin, totalOrdered By: Kanika Helton on 02-03-2025 Bilirubin [Mass/Vol] 0.38 mg/dL 0.00-1.30 [facility] CBC W/Diff, Automatedon 01-16 Absolute Lymph 2.12 X10 3/uL Normal 0.83-4.51 [facility] Comment on above: Performed By: #### L 500.4050, L500.4100, L100.0100 #### [facility] [address] [place], [address] Absolute Neut 5.6 X10 3/uL Normal 2.0-7.7 [facility] Comment on above: Performed By: #### L 500.4050, L500.4100, L100.0100 #### [facility] [address] [place], [address] Basophils/100 WBC (Bld) 0.6 % Normal 0-1 [facility] Comment on above: Performed By: #### L 500.4050, L500.4100, L100.0100 #### [facility] [address] [place], [address] Eosinophils/100 WBC (Bld) 1.9 % Normal 0-5 [facility] Comment on above: Performed By: #### L 500.4050, L500.4100, L100.0100 #### [facility] [address] [place], [address] Erythrocyte distribution width (RBC) [Ratio] 14.9 % High 11.6-14.6 [facility] Comment on above: Performed By: #### L 500.4050, L500.4100, L100.0100 #### [facility] [address] [place], [address] Hematocrit (Bld) [Volume fraction] 37.9 % Normal 37-47 [facility] Comment on above: Performed By: #### L 500.4050, L500.4100, L100.0100 #### [facility] [address] [place], [address] Hemoglobin (Bld) [Mass/Vol] 12.2 g/dL Normal 12.0-15.0 [facility] Comment on above: Performed By: #### L 500.4050, L500.4100, L100.0100 #### [facility] [address] [place], [address] IG% 0.600 Normal 0.0-0.9 [facility] Comment on above: Result Comment: IG% - Immature Granulocytes (promyelocytes, myelocytes and metamyelocytes) > 1% indicates that a LEFT SHIFT is Present. Performed By: #### L 500.4050, L500.4100, L100.0100 #### [facility] [address] [place], [address] Lymphocytes/100 WBC (Bld) 25.1 % Normal 19-41 [facility] Comment on above: Performed By: #### L 500.4050, L500.4100, L100.0100 #### [facility] [address] [place], [address] MCH (RBC) [Entitic mass] 25.7 pg Low 27.0-32.0 [facility] Comment on above: Performed By: #### L 500.4050, L500.4100, L100.0100 #### [facility] [address] [place], [address] MCHC (RBC) [Mass/Vol] 32.2 g/dL Normal 32-36 [facility] Comment on above: Performed By: #### L 500.4050, L500.4100, L100.0100 #### [facility] [address] [place], [address] MCV (RBC) [Entitic vol] 79.8 fL Low 81-99 [facility] Comment on above: Performed By: #### L 500.4050, L500.4100, L100.0100 #### [facility] [address] [place], [address] Monocytes/100 WBC (Bld) 5.9 % Normal 0-10 [facility] Comment on above: Performed By: #### L 500.4050, L500.4100, L100.0100 #### [facility] [address] [place], [address] Neutrophils/100 WBC (Bld) 65.9 % Normal 47-70 [facility] Comment on above: Performed By: #### L 500.4050, L500.4100, L100.0100 #### [facility] [address] [place], [address] Nucleated RBC (Bld) [#/Vol] 0 10*3/uL Normal 0-5 [facility] Comment on above: Performed By: #### L 500.4050, L500.4100, L100.0100 #### [facility] [address] [place], [address] Platelet mean volume (Bld) [Entitic vol] 9.9 fL Normal 6.2-12.0 [facility] Comment on above: Performed By: #### L 500.4050, L500.4100, L100.0100 #### [facility] [address] [place], [address] Platelets (Bld) [#/Vol] 382 10*3/uL Normal 150-450 [facility] Comment on above: Performed By: #### L 500.4050, L500.4100, L100.0100 #### [facility] [address] [place], [address] RBC (Bld) [#/Vol] 4.75 10*6/uL Normal 4.2-5.4 [facility] Comment on above: Performed By: #### L 500.4050, L500.4100, L100.0100 #### [facility] [address] [place], [address] RDW SD 43.0 fl Normal 35.1-43.9 [facility] Comment on above: Performed By: #### L 500.4050, L500.4100, L100.0100 #### [facility] [address] [place], [address] WBC (Bld) [#/Vol] 8.5 10*3/uL Normal 4.4-11.0 [facility] Comment on above: Performed By: #### L 500.4050, L500.4100, L100.0100 #### [facility] [address] [place], [address] Calculated very low density lipoprotein (VLDL) cholesterol measurementOrdered By: Kanika Helton on 02-03-2025 Calculated very low density lipoprotein (VLDL) cholesterol measurement 51 mg/dL High 5-40 [facility] Carbon dioxide, total [Moles /volume] in Central venous bloodOrdered By: Kanika Helton on 02-03-2025 CO2 [Moles/Vol] 21.3 mmol/L 21.0-32.0 [facility] Chloride assayOrdered By: Ra carol ann Helton on 02-03-2025 Chloride [Moles/Vol] 104 mmol/L 98-108 [facility] Comprehensive Metabolic Prof ilon 02-03-2025 Albumin [Mass/Vol] 4.0 g/dL Normal 3.5-5.0 [facility] Comment on above: Performed By: #### L 500.4050, L500.4100, L100.0100 #### [facility] [address] [place], [address] Albumin/Globulin [Mass ratio] 1.2 {ratio} Normal 0.9-2.4 [facility] Comment on above: Performed By: #### L 500.4050, L500.4100, L100.0100 #### [facility] [address] [place], [address] ALK PHOS 107 U/L High 35-104 [facility] Comment on above: Performed By: #### L 500.4050, L500.4100, L100.0100 #### [facility] [address] [place], [address] ALT [Catalytic activity/Vol] 31 U/L Normal <=34 [facility] Comment on above: Performed By: #### L 500.4050, L500.4100, L100.0100 #### [facility] [address] [place], [address] AST [Catalytic activity/Vol] 25 U/L Normal <=31 [facility] Comment on above: Performed By: #### L 500.4050, L500.4100, L100.0100 #### [facility] [address] [place], [address] Bilirubin [Mass/Vol] 0.38 mg/dL Normal 0.00-1.30 [facility] Comment on above: Performed By: #### L 500.4050, L500.4100, L100.0100 #### [facility] [address] [place], [address] BUN/CRE 18.4 RATIO Normal 10-20 [facility] Comment on above: Performed By: #### L 500.4050, L500.4100, L100.0100 #### [facility] [address] [place], [address] Calcium [Mass/Vol] 9.1 mg/dL Normal 7.6-11.0 [facility] Comment on above: Performed By: #### L 500.4050, L500.4100, L100.0100 #### [facility] [address] [place], [address] Chloride [Moles/Vol] 104 mmol/L Normal 98-108 [facility] Comment on above: Performed By: #### L 500.4050, L500.4100, L100.0100 #### [facility] [address] [place], [address] CO2 [Moles/Vol] 21.3 mmol/L Normal 21.0-32.0 [facility] Comment on above: Performed By: #### L 500.4050, L500.4100, L100.0100 #### [facility] [address] [place], [address] Creatinine [Mass/Vol] 0.66 mg/dL Low 0.70-1.20 [facility] Comment on above: Performed By: #### L 500.4050, L500.4100, L100.0100 #### [facility] [address] [place], [address] GAP 13 Normal 5-15 [facility] Comment on above: Performed By: #### L 500.4050, L500.4100, L100.0100 #### [facility] [address] [place], [address] GFR/1.73 sq M.predicted among non-blacks MDRD (S/P/Bld) [Vol rate/Area] 118 mL/min/{1.73_m2} Normal >60 [facility] Comment on above: Result Comment: mL/m in/1.73m2 CKD-EPI Creatinine Equation (2020) Performed By: #### L 500.4050, L500.4100, L100.0100 #### [facility] [address] [place], [address] Globulin (S) [Mass/Vol] 3.4 g/dL Normal 2.2-4.2 [facility] Comment on above: Performed By: #### L 500.4050, L500.4100, L100.0100 #### [facility] [address] [place], [address] Glucose [Mass/Vol] 100 mg/dL High 70-99 [facility] Comment on above: Performed By: #### L 500.4050, L500.4100, L100.0100 #### [facility] [address] [place], [address] Potassium [Moles/Vol] 4.2 mmol/L Normal 3.3-5.1 [facility] Comment on above: Performed By: #### L 500.4050, L500.4100, L100.0100 #### [facility] [address] [place], [address] Sodium [Moles/Vol] 138 mmol/L Normal 133-145 [facility] Comment on above: Performed By: #### L 500.4050, L500.4100, L100.0100 #### [facility] [address] [place], [address] T PROT 7.4 g/dL Normal 5.9-8.4 [facility] Comment on above: Performed By: #### L 500.4050, L500.4100, L100.0100 #### [facility] [address] [place], [address] Urea nitrogen [Mass/Vol] 12 mg/dL Normal 4-19 [facility] Comment on above: Performed By: #### L 500.4050, L500.4100, L100.0100 #### [facility] [address] [place], [address] Eosinophil percentageOrdered By: Kanika Helton on 02-03-2025 Eosinophils/100 WBC (Bld) 1.9 % 0-5 [facility] Erythrocyte distribution wid th ratioOrdered By: Kanikaoseas Helton on 02-03-2025 Erythrocyte distribution width (RBC) [Ratio] 14.9 % High 11.6-14.6 [facility] Erythrocyte distribution wid th standard deviationOrdered By: Kanika Helton on 02-03-2025 Erythrocyte distribution width (RBC) [Ratio] 43.0 fl 35.1-43.9 [facility] Glomerular filtration rate ( GFR) estimation/1.73 sq m using serum, plasma, or whole bOrdered By: Kanika Helton on 02-03-2025 GFR/1.73 sq M.predicted among non-blacks MDRD (S/P/Bld) [Vol rate/Area] 118 mL/min/{1.73_m2} >60 [facility] Comment on above: mL/min/1.73m2 CKD-EP I Creatinine Equation (2020) Hematocrit Auto (Bld) [Volum e fraction]Ordered By: Kanikaoseas Helton on 02-03-2025 Hematocrit (Bld) [Volume fraction] 37.9 % 37-47 [facility] Hemoglobin measurementOrdere d By: Kanika Helton on 02-03-2025 Hemoglobin (Bld) [Mass/Vol] 12.2 g/dL 12.0-15.0 [facility] Immature granulocytes/100 WB C Auto (Bld)Ordered By: aKnika Helton 02-03-2025 Immature granulocytes/100 WBC (Bld) 0.600 % 0.0-0.9 [facility] Comment on above: IG% - Immature Granu locytes (promyelocytes, myelocytes and metamyelocytes) > 1% indicates that a LEFT SHIFT is Present. LDL calc ser/plasOrdered By: Kanika Helton on 02-03-2025 Cholesterol in LDL [Mass/Vol] 112 mg/dL [facility] Comment on above: Besjvakemc=603-570 m g/dL & Higher Myih=030 mg/dL or greaterFriedwald Equation for LDL-C Laboratory - Chemistry and C hemistry - challengeOrdered By: Kanika Helton on 02-03-2025 AST [Catalytic activity/Vol] 25 U/L <32 [facility] Lipid Profileon 02-03-2025 CHOL:HDL 6.13 Normal [facility] Comment on above: Performed By: #### L 500.4050, L500.4100, L100.0100 #### [facility] [address] [place], [address] Cholesterol [Mass/Vol] 195 mg/dL Normal <=200 [facility] Comment on above: Result Comment: Chol esterol level, Desirable <200 mg/dL Borderline high cholesterol 200-239 mg/dL High cholesterol >=240 mg/dL Recommendations of the NCEP Adult Treatment Panel for the following risk-cutoff thresholds for the [place] population. Performed By: #### L 500.4050, L500.4100, L100.0100 #### [facility] [address] [place], [address] Cholesterol in HDL [Mass/Vol] 32 mg/dL Low [facility] Comment on above: Result Comment: [place] onal Cholesterol Education Program (NCEP) guidelines: <40 mg/dL: Low HDL-cholesterol (major risk factor for CHD) >= 60 mg/dL: High HDL-cholesterol (negative risk factor for CHD) HDL-cholesterol is affected by a number of factors, e.g. smoking, exercise, hormones, sex and age. Performed By: #### L 500.4050, L500.4100, L100.0100 #### [facility] [address] [place], [address] Cholesterol in LDL [Mass/Vol] 112 mg/dL Normal [facility] Comment on above: Result Comment: Bord muyjxh=550-358 mg/dL Higher Fffk=768 mg/dL or greater Friedwald Equation for LDL-C Performed By: #### L 500.4050, L500.4100, L100.0100 #### [facility] [address] [place], [address] Cholesterol in VLDL [Mass/Vol] 51 mg/dL High 5-40 [facility] Comment on above: Performed By: #### L 500.4050, L500.4100, L100.0100 #### [facility] [address] [place], [address] Triglyceride [Mass/Vol] 254 mg/dL High [facility] Comment on above: Result Comment: The drugs N-Acetylcysteine and Metamizole may falsely depress this assay. Normal range: <150 mg/dL Borderline High: 150-199 mg/dL High: 200-499 mg/dL Very High: >500 mg/dL Performed By: #### L 500.4050, L500.4100, L100.0100 #### [facility] [address] [facility] [place], [address] MCV (mean corpuscular volume ) determinationOrdered By: Kanika Helton on 02-03-2025 MCV (RBC) [Entitic vol] 79.8 fL Low 81-99 [facility] Mean corpuscular hemoglobin (MCH) determinationOrdered By: Kanikaoseas Helton on 02-03-2025 MCH (RBC) [Entitic mass] 25.7 pg Low 27.0-32.0 [facility] Mean corpuscular hemoglobin concentration (MCHC) determinationOrdered By: Kanika Helton on 02-03-2025 MCHC (RBC) [Mass/Vol] 32.2 g/dL 32-36 [facility] Mean platelet volume determi nationOrdered By: Kanika Helton on 02-03-2025 Platelet mean volume (Bld) [Entitic vol] 9.9 fL 6.2-12.0 [facility] Monocyte percentageOrdered B y: Kanika Helton on 02-03-2025 Monocytes/100 WBC (Bld) 5.9 % 0-10 [facility] Neutrophil percentageOrdered By: Kanika Helton on 02-03-2025 Neutrophils/100 WBC (Bld) 65.9 % 47-70 [facility] Nucleated red blood cell per centageOrdered By: Kanika Helton on 02-03-2025 Nucleated RBC/100 WBC (Bld) [Ratio] 0 % 0-5 [facility] Platelet countOrdered By: Ra carol ann Helton on 02-03-2025 Platelets (Bld) [#/Vol] 382 10*3/uL 150-450 [facility] Potassium measurement (mass/ volume)Ordered By: Kanika Helton on 02-03-2025 Potassium (Unsp spec) [Mass/Vol] 4.2 mmol/L 3.3-5.1 [facility] RBC Auto (Bld) [#/Vol]Ordere d By: Kanika Helton on 02-03-2025 RBC (Bld) [#/Vol] 4.75 10*6/uL 4.2-5.4 [facility] Screening total cholesterol/ high density lipoprotein (HDL) cholesterol ratioOrdered By: Kanika Helton on 02-03-2025 Cholesterol.total/Choles terol in HDL [Mass ratio] 6.13 {ratio} [facility] Serum creatinine measurement (mass/volume)Ordered By: Kanika Helton on 02-03-2025 Creatinine [Mass/Vol] 0.66 mg/dL Low 0.70-1.20 [facility] Serum globulin measurementOr dered By: Kanika Helton on 02-03-2025 Globulin (S) [Mass/Vol] 3.4 g/dL 2.2-4.2 [facility] Serum glucose measurement (m ass/volume)Ordered By: Kanika Helton on 02-03-2025 Glucose [Mass/Vol] 100 mg/dL High 70-99 [facility] Serum or plasma alanine michel otransferase (ALT) measurementOrdered By: Kanika Helton on 02-03-2025 ALT [Catalytic activity/Vol] 31 U/L <35 [facility] Serum or plasma albumin dragan urement (mass/volume)Ordered By: Kanika Helton on 02-03-2025 Albumin [Mass/Vol] 4.0 g/dL 3.5-5.0 [facility] Serum or plasma albumin/glob ulin mass ratioOrdered By: Kanika Helton on 02-03-2025 Albumin/Globulin [Mass ratio] 1.2 {ratio} 0.9-2.4 [facility] Serum or plasma alkaline alirio sphatase measurementOrdered By: Kanika Helton on 02-03-2025 ALP [Catalytic activity/Vol] 107 U/L High 35-104 [facility] Serum or plasma calcium dragan urement (mass/volume)Ordered By: Kanika Helton on 02-03-2025 Calcium [Mass/Vol] 9.1 mg/dL 7.6-11.0 [facility] Serum or plasma cholesterol in HDL measurement (mass/volume)Ordered By: Kanika Helton on 02-03-2025 Cholesterol in HDL [Mass/Vol] 32 mg/dL Low >40 [facility] Comment on above: National Cholesterol Education Program (NCEP) guidelines:<40 mg/dL: Low HDL-cholesterol (major risk factor for CHD)>= 60 mg/dL: High HDL-cholesterol (negative risk factor for CHD)HDL-cholesterol is affected by a number of factors, e.g. smoking, exercise, hormones, sex and age. Serum or plasma cholesterol measurement (mass/volume)Ordered By: Kanika Helton on 02-03-2025 Cholesterol [Mass/Vol] 195 mg/dL <201 [facility] Comment on above: Cholesterol level, D esirable <200 mg/dLBorderline high cholesterol 200-239 mg/dLHigh cholesterol >=240 mg/dLRecommendations of the NCEP Adult Treatment Panel for the following risk-cutoff thresholds for the [place] population. Serum or plasma urea nitroge n measurement (mass/volume)Ordered By: Kanika Helton on 02-03-2025 Urea nitrogen [Mass/Vol] 12 mg/dL 4-19 [facility] Sodium levelOrdered By: Dawn Helton on 02-03-2025 Sodium [Moles/Vol] 138 mmol/L 133-145 [facility] Total proteinOrdered By: Ronit Helton on 02-03-2025 Protein [Mass/Vol] 7.4 g/dL 5.9-8.4 [facility] Triglycerides measurementOrd ered By: Kanika Helton on 02-03-2025 Triglyceride [Mass/Vol] 254 mg/dL High <199 [facility] Comment on above: The drugs N-Acetylcy steine and Metamizole may falsely depress this assay. Normal range: <150 mg/dLBorderline High: 150-199 mg/dLHigh: 200-499 mg/dLVery High: >500 mg/dL White blood cell (WBC) count Ordered By: Kanika Helton on 02-03-2025 WBC (Bld) [#/Vol] 8.5 10*3/uL 4.4-11.0 [facility] Chest PA and Lateralon 04-06 Chest PA and Lateral [facility] Imaging Services [address] [place], [place] [address] Chest PA and Lateral MR#: [id number] Acct: [id number] Name: BRII DASILVA HANS Rep #: [id number] : 1990 F 33 From: Valentin Gasca MD PCP: ADRIENNE Alexandre Status: REG CLI Study: Chest PA and Lateral Date of Exam: 04/06/24 Exam# [id number] Ordering Dr: Kanika Helton -[id number] STUDY: X-RAY CHEST REASON FOR EXAM: Female, [...] at 12:59 EST , CC: ADRIENNE Helton Hog Slaughterer: Signed Normal [facility] LABORATORYOrdered By: Rupert Woodall on 06-12-2022 Albumin [...] 06-12-2022 U Creatinine 134.2 mg/dL High 28.0-117.0 [facility] ([place]) Comment on above: Performed By: #### M ALBR #### [address] [address] U Microalb 2762 mcg/dL Normal [facility] ([place] Comment on above: Performed By: #### M ALBR #### Amaury [address] [address] U Ratio Alb/Cre 21 mcg/mg Normal 0-30 [facility] ([place] Comment on above: Performed By: #### M ALBR #### [address] [address] Auto Diffon 07-16-2018 Basophils #/vol (Bld) 0.1 E3/mcL Normal 0.0-0.2 [facility] Comment on above: Order Comment: Order Added by Discern Expert. Performed By: #### 2 [id number] #### HENRRY RemHemo [facility] [place] [address] Basophils/100 WBC (Bld) 1.1 % Normal 0.0-2.0 [facility] Comment on above: Order Comment: Order Added by Discern Expert. Performed By: #### 2 [id number] #### HENRRY RemHemo [address] [place] [address] Eos Absolute 0.2 E3/mcL Normal 0.0-0.7 [facility] Comment on above: Order Comment: Order Added by Discern Expert. Performed By: #### 2 097966 #### HENRRY RemHemo [address] [place] [address] Eosinophils/100 WBC (Bld) 2.1 % Normal 0.0-11.0 [facility] Comment on above: Order Comment: Order Added by Discern Expert. Performed By: #### 2 [id number] #### HENRRY RemHemo [address] [place] [address] Lymphocytes #/vol (Bld) 2.7 E3/mcL Normal 1.2-3.4 [facility] Comment on above: Order Comment: Order Added by Discern Expert. Performed By: #### 2 [id number] #### HENRRY RemHemo [address] [place] [address] Lymphocytes/100 WBC (Bld) 26.9 % Normal 20.0-55.0 [facility] Comment on above: Order Comment: Order Added by Discern Expert. Performed By: #### 2 506108 #### HENRRY AntonioHemo [address] [place] [address] Johnston Absolute 0.6 E3/mcL Normal 0.0-0.7 [facility] Comment on above: Order Comment: Order Added by Discern Expert. Performed By: #### 2 624401 #### HENRRY AntonioHemo [address] [place] [address] Monocytes/100 WBC (Bld) 5.7 % Normal 0.0-10.0 [facility] Comment on above: Order Comment: Order Added by Discern Expert. Performed By: #### 2 559187 #### HENRRY RemHemo [address] [place] [address] Neutro Absolute 6.4 E3/mcL Normal 1.4-6.5 [facility] Comment on above: Order Comment: Order Added by Discern Expert. Performed By: #### 2 822234 #### HENRRY RemHemo [address] [place] [address] Neutro Auto 64.2 % Normal 37.0-75.0 [facility] Comment on above: Order Comment: Order Added by Discern Expert. Performed By: #### 2 265428 #### HENRRY RemHemo [address] [place] [address] BMPon 07-16-2018 Anion gap molar conc 10 mmol/L Normal 10-20 [facility] Comment on above: Performed By: #### 2 635383 #### HENRRY [employer] [address] [place] [address] Calcium mass conc 9.3 mg/dL Normal 8.6-10.3 [facility] Comment on above: Performed By: #### 2 005204 #### HENRRY [employer] [address] [place] [address] Chloride molar conc 105 mmol/L Normal 98-107 [facility] Comment on above: Performed By: #### 2 915594 #### HENRRY [employer] [address] [place] [address] CO2 molar conc 26.0 mmol/L Normal 21.0-32.0 [facility] Comment on above: Performed By: #### 2 155921 #### HENRRY [employer] [address] [place] [address] Creatinine mass conc 0.5 mg/dL Normal 0.5-1.1 [facility] Comment on above: Performed By: #### 2 [id number] #### HENRRY [employer] [address] [place] [address] Glucose mass conc 107 mg/dL High 70-99 [facility] Comment on above: Performed By: #### 2 606153 #### HENRRY [employer] [address] [place] [address] Potassium molar conc 3.8 mmol/L Normal 3.5-5.3 [facility] Comment on above: Performed By: #### 2 586377 #### HENRRY [employer] [address] [place] [address] Sodium molar conc 137 mmol/L Normal 136-145 [facility] Comment on above: Performed By: #### 2 235254 #### HENRRY [employer] [address] [place] [address] Urea nitrogen mass conc 13 mg/dL Normal 6-23 [facility] Comment on above: Performed By: #### 2 760327 #### HENRRY [employer] [address] [place] [address] Urea nitrogen/Creatinine mass ratio 26.0 ratio Normal 5.4-30.0 [facility] Comment on above: Performed By: #### 2 [id number] #### HENRRY [employer] [address] [place] [address] CBC w/ Auto Diffon Erythrocyte distribution width Ratio (RBC) 14.9 % High 11.5-14.5 [facility] Comment on above: Performed By: #### 2 974501 #### HENRRY RemHemo [address] [place] [address] Hematocrit Volume Fraction (Bld) 37.5 % Normal 36.0-48.0 [facility] Comment on above: Performed By: #### 2 296417 #### HENRRY RemHemo [address] [place] [address] Hemoglobin mass conc (Bld) 12.3 g/dL Normal 12.0-16.0 [facility] Comment on above: Performed By: #### 2 641016 #### HENRRY RemHemo [address] [place] [address] MCH Entitic mass (RBC) 26.2 pg Low 27.0-31.0 [facility] Comment on above: Performed By: #### 2 365260 #### HENRRY RemHemo [address] [place] [address] MCHC mass conc (RBC) 32.8 g/dL Low 33.0-37.0 [facility] Comment on above: Performed By: #### 2 836840 #### HENRRY RemHemo [address] [place] [address] MCV Entitic volume (RBC) 79.8 fL Normal 78.0-100.0 [facility] Comment on above: Performed By: #### 2 927236 #### HENRRY RemHemo [address] [place] [address] Platelet mean volume Entitic volume (Bld) 7.6 fL Normal 7.4-11.0 [facility] Comment on above: Performed By: #### 2 575631 #### HENRRY RemHemo [address] [place] [address] Platelets #/vol (Bld) 374 E3/mcL Normal 130-400 [facility] Comment on above: Performed By: #### 2 558610 #### HENRRY RemHemo [address] [place] [address] RBC #/vol (Bld) 4.70 E6/mcL Normal 3.90-5.40 [facility] Comment on above: Performed By: #### 2 622733 #### HENRRY RemHemo [address] [place] [address] WBC #/vol (Bld) 9.9 E3/mcL Normal 3.6-11.0 [facility] Comment on above: Performed By: #### 2 712605 #### HENRRY RemHemo [address] [place] [address] D-Dimeron 07-16-2018 D-Dimer 386.00 ng/mL Normal <=500.00 [facility] Comment on above: Result Comment: When the concentration of D-dimer is below the hospice/home health aide's cutoff, 500 ng/mL FEU, it may be possible to exclude the diagnosis of DVT and PE in conjunction with a clinical pretest probability assessment. Performed By: #### 2 [id number] #### HENRRY RemHemo [facility] [place] [address] Magnesiumon 07-16-2018 Magnesium mass conc 2.0 Int._Unit/L Normal 1.6-2.4 [facility] Comment on above: Performed By: #### 2 568789 #### HENRRY [employer] [address] [place] [address] PTon 07-16-2018 INR Coag RelTime (PPP) 1.0 {INR} Normal 0.9-1.1 [facility] Comment on above: Result Comment: INR Recommended Therapeutic ranges: Prophylaxis/treatment of DVT and PE..........2.0-3.0 Prevention of systemic embolism.................2.0-3.0 Mechanical prosthetic values........................2.5-3.5 CRITICAL VALUE.........................................> 4.0 NOTE: New methodology started 05/31/2018 Performed By: #### 2 [id number] #### HENRRY AntonioHemo [address] [place] [address] Prothrombin time (PT) Coag time (PPP) 12.1 second(s) Normal 9.7-12.7 [facility] Comment on above: Result Comment: NOTE : New reference range established on 05/31/2018 due to change in methodology. Performed By: #### 2 940219 #### HENRRY RemHemo [facility] [place] [address] PTTon 07-16-2018 aPTT Coag time (Bld) 38 second(s) Normal 28-38 [facility] Comment on above: Result Comment: NOTE :New reference range established 05/31/2018 due to change in methodology. Performed By: #### 2 297725 #### HENRRY AntonioHemo [facility] [place] [id number] Troponin-Ion 07-16-2018 Troponin I.cardiac mass conc 0.01 ng/mL Normal .00-.03 [facility] Comment on above: Performed By: #### 2 071303 #### HENRRY [employer] [address] [place] [address] XR Chest AP Portableon 07-16 XR Chest AP Portable Exam Date/Time: 07/16/2018 12:18 EST Reason for Exam: Chest pain Report STUDY: XR Chest AP Portable; 07/16/2018 12:18 pm INDICATION: Chest pain. COMPARISON: None. ACCESSION NUMBER(S): [id number] ORDERING CLINICIAN: Susan Zavaleta FINDINGS: A single [...] by: Rupa Marrufo MD Technologist: GLP Normal [facility] eGFRon 07-16-2018 GFR/1.73 sq M predicted among non-blacks MDRD vol rate/area (S/P/Bld) mL/min/{1.73_m2} Normal [facility] Comment on above: Order Comment: Order added by Discern Expert. Performed By: #### 1 [id number] #### HENRRY [employer]Chem [address] [place] [address] Vital Signs Date Time Vital Sign Value Performing Clinician Faci lity 01-07-2020 15:23-0400 Body Temperature 98.01 [degF] Stepjuanito mary [facility] 01-07-2020 15:23-0400 BP Diastolic 89 mm[Hg] Nathalie La mport [facility] 01-07-2020 15:23-0400 BP Systolic 136 mm[Hg] Nathalie Lam port [facility] 01-07-2020 15:23-0400 Pulse (Heart Rate) 99 /min Stepha mary [facility] 01-07-2020 15:23-0400 Respiratory Rate 16 /min Kathleen e [facility] Encounters Encounter Date Encounter Type Care Provider Facility Start: 03-03-2025 Encounter for genera l adult medical examination with abnormal findings Kanika [facility] Start: 02-03-2025 End: 02-03-2025 ambulatory Kanika Helton NURSING STAFFING COORDINATOR-C Work Phone: -Laboratory [facility] Start: 02-03-2025 End: 02-03-2025 Patient encounter procedure Kanika Helton NURSING STAFFING COORDINATOR-C -Laboratory [facility] Start: 02-03-2025 End: 02-03-2025 ambulatory [facility] Facility:[facility] Start: 04-06-2024 End: 04-06-2024 ambulatory [facility] Facility:[facility] Start: 06-12-2022 End: 06-17-2022 ambulatory BISHNU RAO DO Facility:B Start: 06-12-2022 End: 06-16-2022 Outreach Lab BISHNU RAO DO [facility] Start: 01-07-2020 End: 01-07-2020 Patient encounter procedure PHYSICIAN [facility] Start: 01-07-2020 End: 01-07-2020 Office outpatient visit 15 minutes Nathalie Kitchen Work Phone: [facility] Dasha Comment on above: Acute otitis externa of both ears, unspecified type (Primary Dx); Ear pain, bilateral Start: 07-16-2018 End: 07-16-2018 Emergency department patient visit [facility] Facility:[facility] Start: 07-16-2018 Patient encounter procedure Facility:[facility] Start: 12-09-2016 Ambulatory UNKNOWN PROVIDER [facility] Procedures Date Procedure Procedure Detail Performing Clinician Tonsillectomy Cece Enciso Tonsillectomy BISHNU RAO DO Plan of Treatment Date Care Activity Detail Author Start: 05-18-2027 Tetanus vaccination Tetanus: Every 1 0yrs [facility] Start: 01-17-2020 Influenza vaccination given Se quential Influenza Vaccine (#1) [facility] Start: 2008 Hepatitis C antibody , confirmatory test Hepatitis C Screening [facility] Start: 2005 HIV screening HIV Screening [facility] Start: 1993 History and physical examination, annual for health maintenance Wellness Visit [facility] Start: 1990 Screening for malign ant neoplasm of cervix Pap Smear [facility] Immunizations Immunization Date Immunization Notes Care Provider Earnest llamas 03-08-2021 SARS-CoV-2 mRNA (tozinameran) vaccine BISHNU RAO DO [facility] Comment on above: Result Comment: 2021: TPVAL 02-15-2021 SARS-CoV-2 mRNA (tozinameran) vaccine BISHNU RAO DO [facility] Comment on above: Result Comment: 2020: TPVAL 02-15-2018 tetanus toxoid, redu liseth diphtheria toxoid, and acellular pertussis vaccine, adsorbed BISHNU RAO DO [facility] 02-14-2018 tetanus toxoid, redu liseth diphtheria toxoid, and acellular pertussis vaccine, adsorbed BISHNU BAEZALAY DO [facility] 05-18-2017 tetanus toxoid, redu liseth diphtheria toxoid, and acellular pertussis vaccine, adsorbed BISHNU MAIRA DO [facility] 02-14-2017 tetanus toxoid, redu liseth diphtheria toxoid, and acellular pertussis vaccine, adsorbed BISHNU MAIRA DO [facility] 01-12-2006 hepatitis B vaccine, pediatric or pediatric/adolescent dosage Cece Zamorano DO [facility] Work Phone: 02-29-2004 hepatitis B vaccine, pediatric or pediatric/adolescent dosage Cece Zamorano DO [facility] Work Phone: 01-05-2004 hepatitis B vaccine, pediatric or pediatric/adolescent dosage Cece Zamorano DO [facility] Work Phone: 01-05-2004 measles, mumps and rubella virus vaccine Cece Zamorano DO [facility] Work Phone: Payers Date Payer Category Payer Unknown [id number] 2024 Self-pay 2022 Private Health Insurance [id number] 2018 Private Health Insurance 2018 Private Health Insurance [id number] 2018 Private Health Insurance MIREYA KENT HMO/NTWLiseth/OACCESS/OA+/PO S [id number] 2018-Present [id number] 1990 Unknown [id number] 1990 Unknown [id number] 1990 Unknown [id number] 1990 Unknown [id number] Unknown Unknown [id number] Unknown [id number] Social History Date Type Detail Facility Start: 09-15-2019 End: 01-07-2020 Tobacco smoking status FLIS Never smoker [facility] Start: 01-07-2020 Tobacco use and exposure Never used [facility] Start: 01-07-2020 Alcohol intake Current drinke r of alcohol (finding) [facility] Start: 01-07-2020 History SDOH Alcohol Frequency 2 [facility] Start: 01-07-2020 History SDOH Alcohol Std Drinks 99 [facility] Sex Assigned At Not on file [facility] Exposure to SARS-CoV-2 (event) Not sure [facility] Start: 1990 Sex Assigned At Female A [facility] Start: 09-15-2019 Alcohol Alcohol [facility] Start: 07-12-2018 Lives Lives [facility] Sex Female [facility] NEGATED: Highlighted row - - [facility] Work Phone: Functional Status Date Assessment Result Facility NEGATED: Highlighted row Functional performance Functional status health issues are not documented Disease [facility] Work Phone: Mental Status Date Assessment Result Facility NEGATED: Highlighted row Cognitive function [Interpretation] Cognitive status health issues are not documented Disease [facility] Work Phone: Evaluation + Plan note Laboratory Note Date & Type Note Facility Evaluation + Plan note Future Appointments Appointment Date:08/07/2022 11:30:00 AM Scheduled Provider:BISHNU RAO DO Location:[facility] Appointment Type: OV Future Scheduled TestsThyroid Stimulating Hormone 06/12/22Complete Blood Count 06/12/22Lipid Profile 06/12/22Hepatitis C Antibody IgG 06/12/22Complete Metabolic Panel 06/12/22 [facility] Evaluation note Note Date & Type Note Facility Evaluation note No assessment information availa frandy [facility] Work Phone: Hospital course Narrative Note Date & Type Note Facility Hospital course Narrative No data available for this section [facility] Hospital Discharge instructions Note Date & Type Note Facility Hospital Discharge instructions No data available for this section [facility] Instructions Note Date & Type Note Facility Instructions Name Instructions not documented [facility] Work Phone: Progress note Note Date & Type Note Facility Progress note No data available for this section [facility] Reason for referral (narrative) Note Date & Type Note Facility Reason for referral (narrative) No reason for referral information available [facility] Work Phone: Summary Purpose Family History No Family History [...] Z82.49) Status:Active Family history of diabetes m ellitus(V18.0, Z83.3) Status:Active Advance Directives No Advanced Directives Records FoundDocuments on File Type Date Recorded 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 Eustachian tube [...] course of antibiotics. Your doctor may recommend duqk-uee-dftaojs medicine. Be safe with medicines. Oral or [...] Log into your personal health record on https://Urban Timest.Tradoria and enter Y822 in the Education box to learn more about Eustachian Tube Problems: Care Instructions. Current as of: December 13, 2018 Content Version: 12. [employer]. Care instructions adapted under license by your healthcare professional. If you have questions about a medical condition or this instruction, always ask your healthcare professional. [employer] disclaims any warranty or liability for your [...] Do not use plastic earplugs. Use a communications department chairperson set on low to carefully dry the ear after you shower. To ease ear pain, hold a warm washcloth against your ear. Take pain medicines exactly as directed. ? If the doctor gave you a prescription medicine for pain, take it as prescribed. ? If you are not taking a prescription pain medicine, ask your doctor if you can take an chkl-jnn-telslfp medicine. Inserting ear drops Warm the drops [...] Log into your personal health record on https://DiJiPOPhart.ScienceLogic.Face to Face Live and enter C706 in the Education box to learn more about Swimmer's Ear: Care Instructions. Current as of: December 13, 2018 Content Version: 12.5 [employer]. Care instructions adapted under license by your healthcare professional. If you have questions about a medical condition or this instruction, always ask your healthcare professional. [employer] disclaims any warranty or liability for your use of this information. documented in this encounter History of Present Illness * Nathalie Kitchen PA-C - 01/07/2020 3:36 PM EDT Patient Name: [facility] Location: Brii Dasilva [address] [place] [id number] Date Of : Date Of Visit: 1990 01/08/2020 MRN# Provider: [id number] Nathalie Kitchen PA-C Chief Complaint Patient presents [...] pain x 2 wks ago/after going to [facility]. NO bleeding or discharge from ears. Pt works at [employer]---vet checked ears and said a lot of [...] Instructions Your Care Instructions The eustachian (say ukz-MXCW-qoaq-un) tubes run between the inside of the [...] an airplane changes altitude or when a hard hat diver goes up or down underwater. Eustachian tube [...] course of antibiotics. Your doctor may recommend jozh-zab-gqornks medicine. Be safe with medicines. Oral or [...] Log into your personal health record on https://DiJiPOPhart.Tradoria and enter Y822 in the Education box to learn more about Eustachian Tube Problems: Care Instructions. Current as of: December 13, 2018 Content Version: 12.5 [employer]. Care instructions adapted under license by your healthcare professional. If you have questions about a medical condition or this instruction, always ask your healthcare professional. [employer] disclaims any warranty or liability for your [...] Do not use plastic earplugs. Use a communications department chairperson set on low to carefully dry the ear after you shower. To ease ear pain, hold a warm washcloth against your ear. Take pain medicines exactly as directed. ? If the doctor gave you a prescription medicine for pain, take it as prescribed. ? If you are not taking a prescription pain medicine, ask your doctor if you can take an qnsq-yuf-qbhhzuf medicine. Inserting ear drops Warm the drops [...] Log into your personal health record on https://Urban Timest.Tradoria and enter C706 in the Education box to learn more about Swimmer's Ear: Care Instructions. Current as of: December 13, 2018 Content Version: 12.5 [id number] [employer]. Care instructions adapted under license by your healthcare professional. If you have questions about a medical condition or this instruction, always ask your healthcare professional. [employer] disclaims any warranty or liability for your use of this information. documented in this encounter Assessments Diagnosis Acute otitis externa of both ears, unspecified type- Primary Ear pain, bilateral Additional Source Comments INFORMATION SOURCE (unrecogn ized section and content) DATE CREATED AUTHOR 11/11/2017 [facility] DATE CREATED AUTHOR AUTHOR'S ORGANIZ ATION 07/17/2018 [facility] DATE CREATED AUTHOR AUTHOR'S ORGANIZ ATION 07/29/2018 [facility] DATE CREATED AUTHOR AUTHOR'S ORGANIZ ATION 01/07/2020 [facility] DATE CREATED AUTHOR AUTHOR'S ORGANIZ ATION 06/17/2022 [facility] ([place] DATE CREATED AUTHOR AUTHOR'S ORGANIZ ATION 03/05/2025 [facility] Reason for Visit (unrecogniz ed section and content) Reason Comments Otalgia both ears painful Care Team (unrecognized sect ion and content) Care Team Personnel Name: BISHNU RAO DO Position: P4 Physician - Primary Care Member Role: Primary Care Physician Address: Address: [address] [place], [place] [id number] [place] [address] Care Team Related Persons Name: IJEOMA DASILVA Care Teams (unrecognized sec tion and content) Team Status: Active Member Role/Relationship Status Dates Bishnu Morel DO Primary care physician Active ADRIENNE Alexandre Primary care physician Active Team Status: Inactive Member Role/Relationship Status Dates ADRIENNE Alexandre Primary care physician Active Start: February 03, 2025 End: February 03, 2025 ADRIENNE Alexandre Attending physician Active S tart: February 03, 2025 End: February 03, 2025 Goals (unrecognized section and content) Goals may be documented in a n alternate section FOR RECORDS PERTAINING TO PATIENTS WHO ARE [...] BE BASED ON THE PRIMARY CLINICAL RECORDS. [employer] provides no warranty or guarantee of the accuracy or completeness of information in this document.
[2025-05-09 20:08] LABS: HPV APTIMA, High Risk Negative (Negative)
== END | disposition home or self-care (01) ==
LOC: LABSPEC 12:02
PROVIDERS: PCP Nurse Practitioner Family; Visit Provider Student in an Organized Health Care Education/Training Program
DX: Z12.4 Encounter for screening for malignant neoplasm of cervix (principal)
CPT/HCPCS: 87624; 88175; G0145